=== PATIENT | male | born 1935 | race Hispanic/Latino ===

== ENCOUNTER 2019-07-08 15:22 | Inpatient (IN) | payer OTHER ==
--- OUTSIDE RECORDS SUMMARY | 2019-07-08 15:28 | XMS REPORT | Encounter Summary ---
:1935 Author Care Team Providers Name Role Phone Dr. Payam Dumont Primary Care Provider [phone] Jaelyn Christy MD Alumni Relations Manager [phone] Brittany Elizalde MD Professional Services Consultant [phone] Yaw Sneed MD Urologist [phone] Don suh MD Radiation Oncologist [phone] Reason for Visit Annual Depression Screening; Medicare Screening PSA; AWV Annual Wellness Visit Male (VFP); Advance Care Plan Instructions 1. Diabetes mellitus HbA1c (hemoglobin A1c), blood microalbumin/creatinine, mass ratio, urine metformin 500 mg tablet 2. Hypertensive disorder hydrochlorothiazide 25 mg tablet enalapril maleate 20 mg tablet verapamil ER (SR) 240 mg tablet,extended release 3. Dyslipidemia pravastatin 10 mg tablet 4. Hypertriglyceridemia Vascepa 1 gram capsule 5. Vitamin D deficiency Vitamin D2 50,000 unit capsule vitamin D, 25-hydroxy, total, serum 6. Adult health examination CBC w/ auto diff CMP, serum or plasma TSH, serum or plasma lipid panel, serum 7. Screening for malignant neoplasm of colon colon cancer screening, stool 8. Screening for malignant neoplasm of prostate PSA, serum or plasma 9. Depression screening learning about depression 10. Advance directive discussed with patient advance care planning: care instructions advance care planning: care instructions 11. Screening for disorder 12. Body mass index 25-29 - overweight learning about healthy weight Discussion Note RTC 6mo Plan of Care Patient Instructions It was good to see you in the office today for your Medicare Annual Wellness Visit. You have been provided some information on healthy nutrition, including a diet rich in fruits and vegetables, minimizing simple carbohydrates, salt, and saturated fats. I want to encourage regular cardi ovascular exercise such as walking at least 30 minutes daily, 5 times per week. Please remember to schedule any preventive health measures that we talked about today. You have also been provided education on fall prevention and community-based lifestyle interventions to help reduce health risks and promote healthy living in your Annual Wellness folder. Screening Recommendations 1. Vaccines Pneumonia: Next one Influenza: Next Fall 2. Colorectal Cancer Screening: Cologuard (every 3 years) Ordered 3. Annual Prostate Screening 4. Annual Depression Screening 5. Annual Alcohol Scree artemio 6. Annual Fall Risk Screening 7. Annual Health Risk Assessment Patient Instructions on Filing Advance Directives Be sure that you have easy access to your paperwork for your medical power of foxing closer and advanced directives. Be sure that the designated person as well as important family members have copies of those forms as well. Please have contact information of your designee renato vasques available. In the event of hospitalization, please bring those important documents with you for reference. Reminders Provider Appointments Est on or around Payam Dumont MD Patient 11/05/2019 Awv 15 on or around Payam Dumont MD 05/08/2020 Lab PSA, 05/08/2019 [facility] Serum or Plasma Practice Laboratory CBC W/ 05/08/2019 [facility] Auto Diff Practice Laboratory CMP, 05/08/2019 [facility] Serum or Plasma Practice Laboratory TSH, 05/08/2019 [facility] Serum or Plasma Practice Laboratory Lipid 05/08/2019 [facility] Panel, Serum Practice Laboratory HbA1C 05/08/2019 [facility] (Hemoglobin a1C), Practice Laboratory Blood 05/08/2019 [facility] Microalbumin/creati Practice Laboratory nine, Mass Ratio, Urine Vitamin 05/08/2019 [facility] D, 25-Hydroxy, Practice Laboratory Total, Serum Colon 05/08/2019 [facility] Cancer Screening, Laboratories (Cologuard Stool Orders Only) Referral None recorded. Procedures None recorded. Surgeries None recorded. Imaging None recorded. Medications Name Start Date Alphagan P 0.1 % eye drops clotrimazole-betamethasone 1 %-0.05 % topical cream APPLY TO THE AFFECTED AND SURROUNDING AREAS OF SKIN BY TOPICAL ROUTE 2 TIMES PER DAY prn rash enalapril maleate 20 mg tablet Take 1 tablet every day by oral route. hydrochlorothiazide 25 mg tablet TOME DELMAR TABLETA TODOS LOS GU metformin 500 mg tablet Take 1 tablet every day by oral route. naproxen 500 mg tablet Take 1 tablet twice a day by oral route as needed. OneTouch Delica Plus Lancet 33 gauge Pazeo 0.7 % eye drops pravastatin 10 mg tablet Take 1 tablet every day by oral route. ranitidine 150 mg tablet Take 1 tablet every day by oral route as needed for 30 days. tamsulosin 0.4 mg capsule per uro tramadol 50 mg tablet Take 1 tablet every 12 hours by oral route as needed. Vascepa 1 gram capsule Take 2 capsules twice a day by oral route. verapamil ER (SR) 240 mg tablet,extended release Take 1 tablet every day by oral route. Vitamin D2 50,000 unit capsule Take 1 capsule every week by oral route. Medications Administered None recorded. Vitals Height Weight BMI Blood Pressure 5 ft 4 in 157.6 lbs 27.1 kg/m2 120/68 mm[Hg] Results Lab Results None recorded. Allergies Code Code System Name Reaction Severity Status Onset NKDA Problems Name Status Onset Date Source Tinea Cruris Active 02/06/2019 Diabetes Mellitus Active 02/06/2019 Vitamin D Deficiency Active 02/06/2019 Dyslipidemia Active 02/06/2019 Hypertensive Disorder Active 02/06/2019 Neck Pain Active 02/06/2019 History of Malignant Neoplasm of Prostate Active 02/06/2019 Procedures Date Name Performed by 06/24/2016 Prostate Surgery Information not available Vaccine List Vaccine Type influenza, injectable, quadrivalent 01/22/2019 pneumococcal conjugate PCV 13 07/28/2018 10/08/2018 zoster subunit 10/08/2018 Social History Tobacco Smoking Status Never Smoker Past Encounters 05/08/2019 Diabetes Mellitus; Hypertensive Disorder; Dyslipidemia; Hypertriglyceridemia; Vitamin D Deficiency; Adult Health Examination; Screening for Malignant Neoplasm of Colon; Screening for Malignant Neoplasm of Prostate; Depression Screening; Advance Directive Discussed with Patient; Screening for Disorder; Body Mass Index 25-29 - Overweight Payam Dumont MD: [id number] [address], Ph. 04/21/2019 Jass Hematuria; Hypertensive Disorder; Dyslipidemia; Neck Pain; Tinea Cruris; Vitamin D Deficiency; Body Mass Index 25-29 - Overweight Payam Dumont MD: [id number] [place], [address] [address], Ph. History of Present Illness Mini Cog Reported By: Patient Functional Ability: Personal/Social/ Draw a clock and write in the numbers in the correct place, and set the time to 10 minutes after 11 o'clock was completed correctly? No, 3 word recall: Your nurse or doctor will ask you to remember 3 words. In 5 minutes, they will ask you to repeat them. Patient recalled 2 words Opioid Use Assessment Reported By: Patient Opioid Use Assessment:: Current Use of Opioids : Tramadol (Ultram), Other:; Naproxen. Has the patient tried other pain management modalities: yes Note: <div>AWV due.</div><div>
</div><div >hypertriglyceridemia - Stable. Taking meds. No problems with side effects or cost.
</div><div>Vascepa 1 gram capsule</div>&lt ;div>
</div><div>jass hematuria - better
</ div><div>Cont Tamsulosin
</div><div>F/U Uro - seeing.
</div><div>
</div><div>DM - Stable. Taking meds. No problems withside effects or cost. </div><div& gt;
</div><div>hypertensive disorder- Stable. Taking meds. No problems with side effects or cost.
</div><div> verapamil ER (SR) 240 mg tablet,extended release
</div><div&gt ;
</div><div>dyslipidemia - Stable. Taking meds. No problems with side effects or cost.
</div><div> pravastatin 10 mg tablet
</div><div>
</div>& lt;div>neck pain - Stable. Taking meds. No problems with side effects or cost.
</div><div>naproxen 500 mg tablet
</div ><div>traMADol 50 mg tablet
</div><div>
& lt;/div><div>tinea cruris - Stable. Taking meds. No problems with side effects or cost.
</div><div>clotrimazole-betamethasone 1 %-0.05 % topical cream
</div><div>
</div>&lt ;div>vitamin D deficiency - Stable. Taking meds. No problems with side effects or cost.
</div><div>Vitamin D2 50,000 unit capsule 1 capsule every week</div><div>
</div>I'd like to talk about what is ahead with your illness and do some thinking in advance about what is important to you so I can make sure we provide you with the care you want-is that okay? {{Yes*|No}}Review of Systems: ROS as noted in the HPI Review of Systems Comprehensive General Adult ROS Reported By: Patient Constitutional: Constitutional: no fever, no night sweats, no significant weight gain, no significant weight loss, no exercise intolerance Eyes: Eyes: no dry eyes, no vision change, no irritation ENMT: Ears: no difficulty hearing, no ear pain. Nose: no frequent nosebleeds, no nose problems, no sinus problems. Mouth/Throat: no sore throat, no bleeding gums, no snoring, no dry mouth, no mouth ulcers, no oral abnormalities, no teeth problems Cardiovascular: Cardiovascular: no chest pain, no arm pain on exertion, no shortness of breath when walking, no shortness of breath when lying down, no palpitations, no known heart murmur, no lightheadedness Respiratory: Respiratory: no cough, no wheezing, no shortness of breath, no coughing up blood, no sleep apnea Gastrointestinal: Gastrointestinal: no abdominal pain, no nausea, no vomiting, no constipation, normal appetite, no diarrhea, not vomiting blood, no dyspepsia, no GERD Genitourinary: Genitourinary: no incontinence, no difficulty urinating, no hematuria, no increased frequency Musculoskeletal: Musculoskeletal: no muscle aches, no muscle weakness, no arthralgias/joint pain, no back pain, no swelling in the extremities Integumentary: Skin: no abnormal mole, no jaundice, no rashes, no laceration Neurologic: Neurologic: no loss of consciousness, no weakness, no numbness, no seizures, no dizziness, no migraines, no headaches, no tremor Psychiatric: Psych: no depression, no sleep disturbances, feeling safe in a relationship, no alcohol abuse, no anxiety, no hallucinations, no suicidal thoughts Endocrine: Endocrine: no fatigue Hematologic/Lymphatic: Hematologic/Lymphatic no swollen glands, no bruising, no excessive bleeding Allergic/Immunologic: Allergy/Immunologic: no runny nose, no sinus pressure, no itching, no hives, no frequent sneezing Physical Exam General Adult Exam (male) Reported By: Patient Constitutional: General Appearance: healthy-appearing, well-developed, overweight. Level of Distress: NAD. Ambulation: ambulating normally Psychiatric: Insight: good judgement. Mental Status: active and alert, normal mood, normal affect. Orientation: to time, to place, to person. Memory: recent memory normal, remote memory normal Head: Head: normocephalic, atraumatic Eyes: Lids and Conjunctivae: non-injected, no discharge, no pallor. Pupils: PERRLA. EOM: EOMI. Lens: clear. Sclerae: non-icteric. Vision: peripheral vision grossly intact, acuity grossly intact ENMT: Ears: no lesions on external ear, EACs clear, TMs clear, TM mobility normal. Hearing: no hearing loss. Nose: no lesions on external nose, nares patent, no septal deviation, nasal passages clear, no sinus tenderness, no nasal discharge. Lips, Teeth, and Gums: no mouth or lip ulcers, no bleeding gums, normal dentition. Oropharynx: moist mucous membranes, no erythema, no exudates, tonsils not enlarged Neck: Neck: supple, trachea midline, no masses, FROM. Lymph Nodes: no cervical LAD, no supraclavicular LAD, no axillary LAD, no inguinal LAD. Thyroid: no enlargement, non-tender, no nodules Lungs: Respiratory effort: no dyspnea. Auscultation: breath sounds normal, good air movement, CTA except as noted, no wheezing, no rales/crackles, no rhonchi Cardiovascular: Heart Auscultation: RRR, normal S1, normal S2, no murmurs, no rubs, no gallops. Neck vessels: no carotid bruits. Pulses including femoral / pedal: normal throughout Abdomen: Bowel Sounds: normal. Inspection and Palpation: soft, non-distended, no tenderness, no guarding, no rebound tenderness, no masses, no CVA tenderness. Liver: non-tender, no hepatomegaly. Spleen: non-tender, no splenomegaly Musculoskeletal:: Motor Strength and Tone: normal, normal tone. Joints, Bones , and Muscles: normal movement of all extremities, no contractures, no bony abnormalities, no malalignment, no tenderness. Extremities: no cyanosis, no edema, no varicosities Neurologic: Gait and Station: normal gait, normal station. Cranial Nerves: grossly intact. Sensation: grossly intact. Reflexes: DTRs 2+ bilaterally throughout. Coordination and Cerebellum: no tremor Skin: Inspection and palpation: no lesions, no jaundice Back: Thoracolumbar Appearance: normal curvature; No spinal tenderness to palpation"
--- OUTSIDE RECORDS SUMMARY | 2019-07-08 15:28 | XMS REPORT | Encounter Summary ---
:1935 Author Care Team Providers Name Role Phone Dr. Payam Dumont Primary Care Provider [phone] Jaelyn Christy MD Process Consultant [phone] Brittany Elizalde MD Shipping & Receiving Lead [phone] Yaw Sneed MD Urologist [phone] Don suh MD Radiation Oncologist [phone] Reason for Visit hospital follow up - TCM (VFP); chronic conditions Instructions 1. Jass hematuria 2. Hypertensive disorder verapamil ER (SR) 240 mg tablet,extended release 3. Dyslipidemia pravastatin 10 mg tablet 4. Neck pain naproxen 500 mg tablet tramadol 50 mg tablet 5. Tinea cruris clotrimazole-betamethasone 1 %-0.05 % topical cream 6. Vitamin D deficiency Vitamin D2 50,000 unit capsule 7. Body mass index 25-29 - overweight Discussion Note RTC AWV 05/12 Patient educational handouts: No information available. Plan of Care Patient Instructions Thank you for scheduling your post hospital visit. Please let us know if you need help in scheduling follow up tests or specialist visits. Knowing what medicines to keep taking and which to ones to stop after a hospital stay can be confusing. Contact your physicians with your questions about what medications you should be taking. Our [facility] can also help you in this area. Contact them at [phone] . [facility] can help you choose the best Home Health agency. We can also help you with social media assistant and community resources. Call us we are here to help. If you experience any new or concerning symptoms, call us immediately at [phone] . Evening and Saturday clinic hours are now available. If you have problems after hours, you can reach the [facility] doctor documentation analyst at . Please follow up with your doctor in . Reminders Provider Appointments Awv 05/08/2019 Payam Dumont MD 11:00AM Lab None recorded. Referral None recorded. Procedures None recorded. Surgeries None recorded. Imaging None recorded. Medications Name Start Date clotrimazole-betamethasone 1 %-0.05 % topical cream APPLY TO THE AFFECTED AND SURROUNDING AREAS OF SKIN BY TOPICAL ROUTE 2 TIMES PER DAY prn rash enalapril maleate 20 mg tablet Take 1 tablet every day by oral route. fenofibrate nanocrystallized 48 mg tablet Take 1 tablet every day by oral route. hydrochlorothiazide 25 mg tablet Take 1 tablet every day by oral route. metformin 500 mg tablet Take 1 tablet every day by oral route. naproxen 500 mg tablet Take 1 tablet twice a day by oral route as needed. prn pain pravastatin 10 mg tablet Take 1 tablet every day by oral route. ranitidine 150 mg tablet Take 1 tablet every day by oral route as needed for 30 days. tamsulosin 0.4 mg capsule per uro tramadol 50 mg tablet Take 1 tablet every 12 hours by oral route as needed. prn moderate to severe pain Vascepa 1 gram capsule Take 1 capsule every day by oral route. verapamil ER (SR) 240 mg tablet,extended release Take 1 tablet every day by oral route. Vitamin D2 50,000 unit capsule Take 1 capsule every week by oral route. zolpidem 5 mg tablet Take 1 tablet every day by oral route at bedtime for 30 days. Medications Administered None recorded. Vitals Height Weight BMI Blood Pressure 5 ft 4 in 158.2 lbs 27.2 kg/m2 120/60 mm[Hg] Results Lab Results None recorded. Allergies [...] Tobacco Smoking Status Never Smoker Past Encounters 04/21/2019 Jass Hematuria; Hypertensive Disorder; Dyslipidemia; Neck Pain; Tinea Cruris; Vitamin D Deficiency; Body Mass Index 25-29 - Overweight Payam Dumont MD: [address], [address], [place] [address], Ph. [phone] History of Present Illness TCM Provider Visit Reported By: Patient HPI: Functional Status No difficulty following discharge instructions, Taking medications as prescribed, Understands missed doses, Following recommended activity level Note: TCM - [facility] - Pt had gross hematuria. Saw Uro. Per Pt, Uro cleaned out the bladder. No CA per Pt.<div>Dates: 03/29-05/12</div><div& gt;Rx: Flomax</div><div>Better
<div>
</ div><div>diabetes mellitus - Stable. Taking meds. No problems with side effects or cost. </div><div>metFORMIN 500 mg tablet from every day for 90 daysto every day</div><div>
</div>& lt;div>hypertensive disorder - Stable. Taking meds. No problems with side effects or cost.
</div><div>verapamil ER (SR) 240 mg tablet,extended release - needs refills
</div><div> enalapril maleate 20 mg tablet
</div><div> hydroCHLOROthiazide 25 mg tablet
</div><div>
</ div><div>dyslipidemia - Stable. Taking meds. No problems with side effects or cost.
</div><div>pravastatin 10 mg tablet - not sure if taking</div><div>Pt has Vascepa</div><div> fenofibrate nanocrystallized 48 mg tablet</div><div>
</ div><div>neck pain - Stable. Taking meds. No problems with side effects or cost. </div><div>traMADol 50 mg tablet from every day as needed to every 12 hours as needed</div><div>naproxen 500 mg tablet 1 tablet 2 times a day as needed
</div><div>XR, cervical spine, 2 or 3 view - d/w Pt
</div><div>
& lt;/div><div>tinea cruris - Stable. Taking meds. No problems with side effects or cost.
</div><div>clotrimazole-betamethasone 1 %-0.05 % topical cream APPLY TO THE AFFECTED AND SURROUNDING AREAS OF SKIN BY TOPICAL ROUTE 2 TIMES PER DAY prn rash
</div><div><br&gt ;</div><div>dysuria - w/u pending
</div><div> Refer Uro, Dr. Sneed - saw</div><div>
</div><div >Vit D - Stable.Taking meds. No problems with side effects or cost. </div& gt;<div>
</div><div>Your labs are normal except...&lt ;br></div><div>1. Lipids are a little high. Irecommend low fat diet and walking. I am starting a new med, Pravastatin.
</div>&lt ;div>2. Your diabetes is a little high. Take your meds. I recommend low carb / sugar diet and walking. I will monitor.
</div><div>3. Your liver tests are a little high. I recommendavoiding fatty foods, pain meds, and alcohol. I will monitor.
</div><div>4. Your kidney tests are a little abnormal. Drink water at least 4 times daily. I will monitor.
</div><div>5. Your platelets were a little abnormal. This may be a lab variation or other cause. I will monitor.</div><div>1. 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 TakeTylenol as needed for pain.</div></div>Review of Systems: ROS as noted in the HPI Review of Systems Comprehensive General Adult ROS Reported By: Patient Constitutional: Constitutional: no fever Eyes: Eyes: no vision change, no irritation ENMT: Ears: no difficulty hearing, no ear pain. Nose: no nose problems, no sinus problems. Mouth/Throat: no sore throat, no oral abnormalities Cardiovascular: Cardiovascular: no chest pain, no palpitations Respiratory: Respiratory: no cough, no wheezing, no shortness of breath Gastrointestinal: Gastrointestinal: no abdominal pain, no nausea, no vomiting, no constipation, normal appetite, no diarrhea, no GERD Genitourinary: Genitourinary: no difficulty urinating, no hematuria, no increased frequency Musculoskeletal: Musculoskeletal: no muscle aches Integumentary: Skin: no rashes Neurologic: Neurologic: no headaches Endocrine: Endocrine: no fatigue Hematologic/Lymphatic: Hematologic/Lymphatic no swollen glands Allergic/Immunologic: Allergy/Immunologic: no runny nose, no sinus pressure, no itching, no frequent sneezing Physical Exam General Adult Exam (male) Reported By: Patient Constitutional: General Appearance: healthy-appearing, well-nourished, well-developed. Level of Distress: NAD. Ambulation: ambulating normally Psychiatric: Insight: good judgement. Mental Status: normal mood, normal affect Head: Head: normocephalic, atraumatic Eyes: Lids and Conjunctivae: non-injected, no discharge, no pallor. Pupils: PERRLA. EOM: EOMI ENMT: Ears: no lesions on external ear, EACs clear, TMs clear. Hearing: no hearing loss. Nose: no lesions on external nose, nares patent, nasal passages clear, no sinus tenderness, no nasal discharge. Oropharynx: moist mucous membranes, no erythema, no exudates, tonsils not enlarged Neck: Neck: supple, trachea midline, no masses, FROM. Lymph Nodes: no cervical LAD, no supraclavicular LAD Lungs: Respiratory effort: no dyspnea. Auscultation: breath sounds normal, good air movement, CTA except as noted, no wheezing, no rales/crackles, no rhonchi Cardiovascular: Heart Auscultation: RRR, normal S1, normal S2, no murmurs, no rubs, no gallops Abdomen: Bowel Sounds: normal. Inspection and Palpation: soft, non-distended, no tenderness, no guarding, no masses. Liver: non-tender, no hepatomegaly. Spleen: non-tender, no splenomegaly Musculoskeletal:: Extremities: no edema Neurologic: Gait and Station: normal gait, normal station
--- OUTSIDE RECORDS SUMMARY | 2019-07-08 15:28 | XMS REPORT | Encounter Summary ---
:1935 Author Care Team Providers Name Role Phone Dr. Payam Dumont Primary Care Provider [phone] Jaelyn Christy MD Food Checker [phone] Brittany Elizalde MD Field Artillery Targeting Technician [phone] Yaw Sneed MD Urologist [phone] Don suh MD Radiation Oncologist [phone] Reason for Visit chronic conditions Instructions 1. Diabetes mellitus HbA1c (hemoglobin A1c), blood metformin 500 mg tablet 2. Hypertensive disorder CMP, serum or plasma CBC w/ auto diff verapamil ER (SR) 240 mg tablet,extended release enalapril maleate 20 mg tablet hydrochlorothiazide 25 mg tablet 3. Dyslipidemia lipid panel, serum fenofibrate nanocrystallized 48 mg tablet 4. Neck pain tramadol 50 mg tablet naproxen 500 mg tablet XR, cervical spine, 2 or 3 view 5. Tinea cruris clotrimazole-betamethasone 1 %-0.05 % topical cream 6. Immunization refused 7. Body mass index 25-29 - overweight Discussion Note: None recorded.Patient educational handouts: No information available. Plan of Care Patient Instructions RTC 3 mo for AWV Reminders Provider Appointments [facility] on or around Payam Dumont, 05/09/2019 Lab HbA1C 02/06/2019 [place] (Hemoglobin a1C), Practice Laboratory Blood Lipid 02/06/2019 [place] Panel, Serum Practice Laboratory CMP, Serum 02/06/2019 [place] or Plasma Practice Laboratory CBC W/ 02/06/2019 [place] Auto Diff Practice Laboratory Referral None recorded. Procedures None recorded. Surgeries None recorded. Imaging XR, 02/06/2019 [facility], [facility] 3 View Medications Name Start Date clotrimazole-betamethasone 1 %-0.05 [...] by oral route as needed. prn pain tramadol 50 mg tablet Take 1 tablet every 12 hours by oral route as needed. prn moderate to severe pain triamcinolone acetonide 0.1 % topical cream APPLY A THIN LAYER TO THE AFFECTED AREA(S) BY TOPICAL ROUTE 3 TIMES PER DAY Vascepa 1 gram capsule Take 1 capsule every day by oral route. verapamil ER (SR) 240 mg tablet,extended release Take 1 tablet every day by oral route. Medications Administered None recorded. Vitals Height Weight BMI Blood Pressure 5 ft 4 in 155.6 lbs 26.7 kg/m2 Lab Results None recorded. Allergies Code Code System Name Reaction Severity Status Onset NKDA Problems Name Status Onset Date Source Tinea Cruris Active 02/06/2019 Diabetes Mellitus Active 02/06/2019 Vitamin D Deficiency Active 02/06/2019 Dyslipidemia Active 02/06/2019 Hypertensive Disorder Active 02/06/2019 Neck Pain Active 02/06/2019 History of Malignant Neoplasm of Prostate Active 02/06/2019 Procedures Date Name Performed by 06/24/2016 Prostate Surgery Information not available 02/06/2019 XR, Cervical Spine, 2 or 3 View [facility] [address] [place] [address] (Work [address]) Vaccine List None recorded. Social History Tobacco Smoking Status Never Smoker Past Encounters 02/06/2019 Diabetes Mellitus; Hypertensive Disorder; Dyslipidemia; Neck Pain; Tinea Cruris ; Immunization Refused; Body Mass Index 25-29 - Overweight Payam Dumont MD: [id number], [address], [place] [address], Ph. History of Present Illness Note: Get est.<div>
</div><div>HTN - Stable. Taking meds. No problems with side effects or cost. </div><div>< br></div><div>HLD - Stable. Taking meds. No problems with side effects or cost. </div><div>
</div><div>Vit D - Stable. Taking meds. No problems with side effects or cost. </div>< div>
Neck Pain - Stable. Taking meds. No problems with side effects or cost. </div><div>
</div><div>Rash - has itchy rash in groin. Triamcinolone helped in past.</div>Review of Systems : ROS as noted in the HPI Review [...] Status: active and alert, normal mood, normal affect Head: Head: normocephalic, atraumatic Lungs: Respiratory effort: no dyspnea. Auscultation: breath sounds normal, good air movement, CTA except as noted Cardiovascular: Heart Auscultation: RRR, normal S1, normal S2 Neurologic: Gait and Station: normal gait, normal station
--- OUTSIDE RECORDS SUMMARY | 2019-07-08 15:28 | XMS REPORT ---
:1935 [facility] [address] [place] [address] Care Team Providers Name Role Phone Unavailable Unavailable Unavailable Payers Payer Name Policy Type Policy Number Effective Date Expiration Date Problems This patient has no known problems. Allergies, Adverse Reactions, Alerts Allergy Allergy Status Severity Reaction(s) Onset Inactive Treating Comments Name Type Date Date Clinician No Known DA Active U 2019-03 Allergies 07 00:00:0 0 Medications This patient has no known medications. Results Test Description Test Time Test Comments Text Results Atomic Results Result Comments GLUCOSE BEDSIDE TESTING 2019-04-07 12:03:00 Test Item Value Reference Range Comments GLUCOSE BEDSIDE TESTING (test code=GLUBED) 99 MG/DL 60-99 GLUCOSE BEDSIDE [id number] 17:28:00 Test Item Value Reference Range Comments GLUCOSE BEDSIDE TESTING (test code=GLUBED) 147 MG/DL 60-99 GLUCOSE BEDSIDE [id number] 05:42:00 Test Item Value Reference Range Comments GLUCOSE BEDSIDE TESTING (test code=GLUBED) 109 MG/DL 60-99 GLUCOSE BEDSIDE [id number] 15:54:00 Test Item Value Reference Range Comments GLUCOSE BEDSIDE TESTING (test code=GLUBED) 134 MG/DL 60-99 GLUCOSE BEDSIDE [id number] 12:46:00 Test Item Value Reference Range Comments GLUCOSE BEDSIDE TESTING (test code=GLUBED) 160 MG/DL 60-99 BASIC METABOLIC [id number] 06:26:00 Test Item Value Reference Range Comments SODIUM (test code=NA) 136 MMOL/L 137-145 POTASSIUM (test code=K) 3.6 MMOL/L 3.5-5.1 CHLORIDE (test code=CL) 102 MMOL/L 98-107 CARBON DIOXIDE (test code=CO2) 31 MMOL/L 22-30 ANION GAP (test code=GAP) 7 MMOL/L 14-24 GLUCOSE (test code=GLU) 97 MG/DL 74-106 BLOOD UREA NITROGEN (test 17 MG/DL 9-20 code=BUN) GLOMERULAR FILTRATION RATE > 60 Reporting units: ml/min/1.73 (test code=GFR) m2 (Modified MDRD Formula)Reference Range: > or=60 ml/min/1.73 m2 CREATININE (test code=CREAT) 0.80 MG/DL 0.66-1.25 CALCIUM (test code=CA) 8.5 MG/DL 8.4-10.2 BASIC METABOLIC [id number] 06:21:00 Test Item Value Reference Range Comments SODIUM (test code=NA) 136 MMOL/L 137-145 POTASSIUM (test code=K) 3.6 MMOL/L 3.5-5.1 CHLORIDE (test code=CL) 102 MMOL/L 98-107 CARBON DIOXIDE (test code=CO2) MMOL/L 22-30 GLUCOSE (test code=GLU) MG/DL 74-106 BLOOD UREA NITROGEN (test code=BUN) MG/DL 9-20 GLOMERULAR FILTRATION RATE (test code=GFR) CREATININE (test code=CREAT) MG/DL 0.66-1.25 CALCIUM (test code=CA) MG/DL 8.7-9.7 GLUCOSE BEDSIDE [id number] 06:07:00 Test Item Value Reference Range Comments GLUCOSE BEDSIDE TESTING (test code=GLUBED) 100 MG/DL 60-99 CBC W/AUTO [id number] 06:05:00 Test Item Value Reference Range Comments WHITE BLOOD CELL (test code=WBC) 9.3 K/MM3 3.8-9.8 RED BLOOD CELL (test code=RBC) 3.08 M/MM3 3.95-5.67 HEMOGLOBIN (test code=HGB) 10.5 G/DL 12.4-16.7 HEMATOCRIT (test code=HCT) 31.1 % 35.9-49.5 MEAN CELL VOLUME (test code=MCV) 101 fL 81.7-96.1 MEAN CELL HGB (test code=MCH) 34.1 pg 27.6-33.2 MEAN CELL HGB CONCETRATION (test code=MCHC) 33.8 % 32.9-35.5 RED CELL DISTRIBUTION WIDTH (test code=RDW) 12.0 % 12.1-15.2 PLATELET COUNT (test code=PLT) 137 K/MM3 129-368 MEAN PLATELET VOLUME (test code=MPV) 10.9 fl 7.4-10.4 NEUTROPHIL % (test code=NT%) 64.7 % 43-75 IMMATURE GRANULOCYTE % (test code=IG%) 1.0 % 0.0-2.0 LYMPHOCYTE % (test code=LY%) 24.9 % 14-44 MONOCYTE % (test code=MO%) 7.1 % 4-13 EOSINOPHIL % (test code=EO%) 1.9 % 0-6 BASOPHIL % (test code=BA%) 0.4 % 0-2 NUCLEATED RBC % (test code=NRBC%) 0.0 % 0-1.0 NEUTROPHIL # (test code=NT#) 6.00 K/mm3 2.0-7.6 IMMATURE GRANULOCYTE # (test code=IG#) 0.09 x10 3/uL 0-0.03 LYMPHOCYTE # (test code=LY#) 2.31 K/mm3 1.0-3.8 MONOCYTE # (test code=MO#) 0.66 K/mm3 0.1-0.8 EOSINOPHIL # (test code=EO#) 0.18 K/mm3 0.0-0.2 BASOPHIL # (test code=BA#) 0.04 K/mm3 0.0-0.2 NUCLEATED RBC # (test code=NRBC#) 0.00 K/mm3 0.0-0.1 GLUCOSE BEDSIDE [id number] 21:37:00 Test Item Value Reference Range Comments GLUCOSE BEDSIDE TESTING (test code=GLUBED) 126 MG/DL 60-99 URINARY BLADDER,[id number] 15:23:00 RUN DATE: 04/01/19 [facility] [place] PAGE 1 RUN TIME: 1523 Specimen Inquiry RUN USER: INTERFACE PATIENT: CAITLIN CARDOSO LOC: POP U #: [id number] AGE/SX: 83/M ROOM: [facility] RE03/30[facility] DR: Destin Sy MD : 37 BED: A DIS: STATUS: ADM IN TLOC: --- --------- SPEC #: [id number] RECD: 03/30/19 STATUS: SUSANNA ROWELL #: [id number] HERNESTO: 03/30/19 [facility] [place] DR: Destin Sy MD ENTERED: 03/30/19 SP TYPE: URINBLAD IVONE DR: Yaw Sneed MD ORDERED: SURG PATH LVL 5 CODES: [id number] - URINARY BLADDER [id number] - URINARY BLADDER ACUTEINFLAMMAT [id number] - URINARY BLADDER TRANSITIONAL CE [id number] - URINARY BLADDER EXCISION, NOS [place]IES [place]: [place] [id number] [facility] [address] [place] [address] [place] [address] [address] Sec. Office #[phone] PROCEDURES: SURG PATH LVL 5 (03/31/19 -1154) TISSUES: A. URINARY BLADDER, NOS - BLADDER BIOPSY CONSULTATION Dr. Rock has reviewed this case and agrees with the diagnosis. 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 Received in formalin are irregular fragments of pink-raymundo to red-brown soft tissue (2.0 x 1.5 x 0.3 cm in aggregate, 0.2 g). The entire specimen is submitted as A. /ba/summer MICROSCOPIC DESCRIPTION Bladder biopsy. 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 Adequate muscularis propria is present. Note: Additional levels and recuts performed. /summer SYNOPTIC REPORT ACOS MANDATED SYNOPTIC DATA ELEMENTS Procedure: Transurethralresection of bladder tumor Tumor Site: Urinary bladder, specific site not otherwise specified Histologic Type: Histology indefinite for papillary urothelial carcinoma, noninvasive (obscuring cautery artifact present) Histologic Grade: Presumptive low grade Tumor Configuration: Presumptive papillary architecture Muscularis Propria: Muscularis propria (detrusor muscle ) present Lymphovascular Invasion: Not identified Tumor Extension: Presumptive noninvasivepapillary carcinoma Additional Pathologic Findings: Inflammation/regenerative changes [facility] [place] 04/01/19 1523 END OF REPORT BASIC METABOLIC [id number] 08:40:00 Test Item Value Reference Range Comments SODIUM (test code=NA) 136 MMOL/L 137-145 POTASSIUM (test code=K) 3.8 MMOL/L 3.5-5.1 CHLORIDE (test code=CL) 101 MMOL/L 98-107 CARBON DIOXIDE (test code=CO2) 29 MMOL/L 22-30 GLUCOSE (test code=GLU) 120 MG/DL 74-106 BLOOD UREA NITROGEN (test 22 MG/DL 9-20 code=BUN) GLOMERULAR FILTRATION RATE > 60 Reporting units: ml/min/1.73 (test code=GFR) m2 (Modified MDRD Formula)Reference Range: > or=60 ml/min/1.73 m2 CREATININE (test code=CREAT) 1.00 MG/DL 0.66-1.25 CALCIUM (test code=CA) 8.4 MG/DL 8.4-10.2 BASIC METABOLIC [id number] 08:39:00 Test Item Value Reference Range Comments SODIUM (test code=NA) 136 MMOL/L 137-145 POTASSIUM (test code=K) 3.8 MMOL/L 3.5-5.1 CHLORIDE (test code=CL) 101 MMOL/L 98-107 CARBON DIOXIDE (test code=CO2) 29 MMOL/L 22-30 GLUCOSE (test code=GLU) MG/DL 74-106 BLOOD UREA NITROGEN (test MG/DL 9-20 code=BUN) GLOMERULAR FILTRATION RATE > 60 Reporting units: ml/min/1.73 (test code=GFR) m2 (Modified MDRD Formula)Reference Range: > or=60 ml/min/1.73 m2 CREATININE (test code=CREAT) 1.00 MG/DL 0.66-1.25 CALCIUM (test code=CA) MG/DL 8.7-9.7 BASIC METABOLIC [id number] 08:36:00 Test Item Value Reference Range Comments SODIUM (test code=NA) 136 MMOL/L 137-145 POTASSIUM (test code=K) 3.8 MMOL/L 3.5-5.1 CHLORIDE (test code=CL) 101 MMOL/L 98-107 CARBON DIOXIDE (test code=CO2) MMOL/L 22-30 GLUCOSE (test code=GLU) MG/DL 74-106 BLOOD UREA NITROGEN (test code=BUN) MG/DL 9-20 GLOMERULAR FILTRATION RATE (test code=GFR) CREATININE (test code=CREAT) MG/DL 0.66-1.25 CALCIUM (test code=CA) MG/DL 8.7-9.7 CBC W/AUTO [id number] 08:10:00 Test Item Value Reference Range Comments WHITE BLOOD CELL (test code=WBC) 11.5 K/MM3 3.8-9.8 RED BLOOD CELL (test code=RBC) 2.95 M/MM3 3.95-5.67 HEMOGLOBIN (test code=HGB) 10.2 G/DL 12.4-16.7 HEMATOCRIT (test code=HCT) 29.7 % 35.9-49.5 MEAN CELL VOLUME (test code=MCV) 101 fL 81.7-96.1 MEAN CELL HGB (test code=MCH) 34.6 pg 27.6-33.2 MEAN CELL HGB CONCETRATION (test code=MCHC) 34.3 % 32.9-35.5 RED CELL DISTRIBUTION WIDTH (test code=RDW) 11.9 % 12.1-15.2 PLATELET COUNT (test code=PLT) 133 K/MM3 129-368 MEAN PLATELET VOLUME (test code=MPV) 11.5 fl 7.4-10.4 NEUTROPHIL % (test code=NT%) 77.2 % 43-75 IMMATURE GRANULOCYTE % (test code=IG%) 0.5 % 0.0-2.0 LYMPHOCYTE % (test code=LY%) 16.0 % 14-44 MONOCYTE % (test code=MO%) 6.1 % 4-13 EOSINOPHIL % (test code=EO%) 0.1 % 0-6 BASOPHIL % (test code=BA%) 0.1 % 0-2 NUCLEATED RBC % (test code=NRBC%) 0.0 % 0-1.0 NEUTROPHIL # (test code=NT#) 8.85 K/mm3 2.0-7.6 IMMATURE GRANULOCYTE # (test code=IG#) 0.06 x10 3/uL 0-0.03 LYMPHOCYTE # (test code=LY#) 1.84 K/mm3 1.0-3.8 MONOCYTE # (test code=MO#) 0.70 K/mm3 0.1-0.8 EOSINOPHIL # (test code=EO#) 0.01 K/mm3 0.0-0.2 BASOPHIL # (test code=BA#) 0.01 K/mm3 0.0-0.2 NUCLEATED RBC # (test code=NRBC#) 0.00 K/mm3 0.0-0.1 BASIC METABOLIC [id number] 07:20:00 Test Item Value Reference Range Comments SODIUM (test code=NA) 135 MMOL/L 137-145 POTASSIUM (test code=K) 4.0 MMOL/L 3.5-5.1 CHLORIDE (test code=CL) 102 MMOL/L 98-107 CARBON DIOXIDE (test code=CO2) 27 MMOL/L 22-30 ANION GAP (test code=GAP) 10 MMOL/L 14-24 GLUCOSE (test code=GLU) 134 MG/DL 74-106 BLOOD UREA NITROGEN (test 24 MG/DL 9-20 code=BUN) GLOMERULAR FILTRATION RATE > 60 Reporting units: ml/min/1.73 (test code=GFR) m2 (Modified MDRD Formula)Reference Range: > or=60 ml/min/1.73 m2 CREATININE (test code=CREAT) 1.00 MG/DL 0.66-1.25 CALCIUM (test code=CA) 8.6 MG/DL 8.4-10.2 BASIC METABOLIC [id number] 07:19:00 Test Item Value Reference Range Comments SODIUM (test code=NA) 135 MMOL/L 137-145 POTASSIUM (test code=K) 4.0 MMOL/L 3.5-5.1 CHLORIDE (test code=CL) 102 MMOL/L 98-107 CARBON DIOXIDE (test code=CO2) MMOL/L 22-30 GLUCOSE (test code=GLU) MG/DL 74-106 BLOOD UREA NITROGEN (test MG/DL 9-20 code=BUN) GLOMERULAR FILTRATION RATE > 60 Reporting units: ml/min/1.73 (test code=GFR) m2 (Modified MDRD Formula)Reference Range: > or=60 ml/min/1.73 m2 CREATININE (test code=CREAT) 1.00 MG/DL 0.66-1.25 CALCIUM (test code=CA) MG/DL 8.7-9.7 BASIC METABOLIC [id number] 07:17:00 Test Item Value Reference Range Comments SODIUM (test code=NA) 135 MMOL/L 137-145 POTASSIUM (test code=K) 4.0 MMOL/L 3.5-5.1 CHLORIDE (test code=CL) 102 MMOL/L 98-107 CARBON DIOXIDE (test code=CO2) MMOL/L 22-30 GLUCOSE (test code=GLU) MG/DL 74-106 BLOOD UREA NITROGEN (test code=BUN) MG/DL 9-20 GLOMERULAR FILTRATION RATE (test code=GFR) CREATININE (test code=CREAT) MG/DL 0.66-1.25 CALCIUM (test code=CA) MG/DL 8.7-9.7 CBC W/AUTO [id number] 06:41:00 Test Item Value Reference Range Comments WHITE BLOOD CELL (test code=WBC) 11.4 K/MM3 3.8-9.8 RED BLOOD CELL (test code=RBC) 2.96 M/MM3 3.95-5.67 HEMOGLOBIN (test code=HGB) 10.1 G/DL 12.4-16.7 HEMATOCRIT (test code=HCT) 30.0 % 35.9-49.5 MEAN CELL VOLUME (test code=MCV) 101 fL 81.7-96.1 MEAN CELL HGB (test code=MCH) 34.1 pg 27.6-33.2 MEAN CELL HGB CONCETRATION (test code=MCHC) 33.7 % 32.9-35.5 RED CELL DISTRIBUTION WIDTH (test code=RDW) 11.9 % 12.1-15.2 PLATELET COUNT (test code=PLT) 140 K/MM3 129-368 MEAN PLATELET VOLUME (test code=MPV) 11.3 fl 7.4-10.4 NEUTROPHIL % (test code=NT%) 85.1 % 43-75 IMMATURE GRANULOCYTE % (test code=IG%) 0.8 % 0.0-2.0 LYMPHOCYTE % (test code=LY%) 10.6 % 14-44 MONOCYTE % (test code=MO%) 3.4 % 4-13 EOSINOPHIL % (test code=EO%) 0.0 % 0-6 BASOPHIL % (test code=BA%) 0.1 % 0-2 NUCLEATED RBC % (test code=NRBC%) 0.0 % 0-1.0 NEUTROPHIL # (test code=NT#) 9.66 K/mm3 2.0-7.6 IMMATURE GRANULOCYTE # (test code=IG#) 0.09 x10 3/uL 0-0.03 LYMPHOCYTE # (test code=LY#) 1.20 K/mm3 1.0-3.8 MONOCYTE # (test code=MO#) 0.39 K/mm3 0.1-0.8 EOSINOPHIL # (test code=EO#) 0.00 K/mm3 0.0-0.2 BASOPHIL # (test code=BA#) 0.01 K/mm3 0.0-0.2 NUCLEATED RBC # (test code=NRBC#) 0.00 K/mm3 0.0-0.1 AG PROSTATE [id number] 14:35:00 Test Item Value Reference Range Comments AG PROSTATE SPECIFIC (test code=PSA) < 0.1 ng/mL 0.0-4.0 GLUCOSE BEDSIDE [id number] 14:28:00 Test Item Value Reference Range Comments GLUCOSE BEDSIDE TESTING (test code=GLUBED) 133 MG/DL 60-99 COMPREHENSIVE METABOLIC [id number] 04:10:00 Test Item Value Reference Range Comments SODIUM (test code=NA) 133 MMOL/L 137-145 POTASSIUM (test code=K) 3.9 MMOL/L 3.5-5.1 CHLORIDE (test code=CL) 96 MMOL/L 98-107 CARBON DIOXIDE (test code=CO2) 17 MMOL/L 22-30 GLUCOSE (test code=GLU) 248 MG/DL 74-106 BLOOD UREA NITROGEN (test 30 MG/DL 9-20 code=BUN) GLOMERULAR FILTRATION RATE 49 Reporting units: ml/min/1.73 (test code=GFR) m2 (Modified MDRD Formula)Reference Range: > or=60 ml/min/1.73 m2 CREATININE (test code=CREAT) 1.40 MG/DL 0.66-1.25 TOTAL PROTEIN (test code=PROT) 8.2 G/DL 6.2-7.6 ALBUMIN (test code=ALB) 4.7 G/DL 3.5-5.0 CALCIUM (test code=CA) 9.9 MG/DL 8.4-10.2 BILIRUBIN TOTAL (test 1.2 MG/DL 0.2-1.3 code=BILT) SGOT/AST (test code=AST) 55 UNITS/L 17-59 SGPT/ALT (test code=ALT) 74 UNITS/L 21-72 ALKALINE PHOSPHATASE (test 38 UNITS/L 38-126 code=ALKP) COMPREHENSIVE METABOLIC [id number] 04:08:00 Test Item Value Reference Range Comments SODIUM (test code=NA) 133 MMOL/L 137-145 POTASSIUM (test code=K) 3.9 MMOL/L 3.5-5.1 CHLORIDE (test code=CL) 96 MMOL/L 98-107 CARBON DIOXIDE (test code=CO2) MMOL/L 22-30 GLUCOSE (test code=GLU) MG/DL 74-106 BLOOD UREA NITROGEN (test code=BUN) MG/DL 9-20 GLOMERULAR FILTRATION RATE (test code=GFR) CREATININE (test code=CREAT) MG/DL 0.66-1.25 TOTAL PROTEIN (test code=PROT) G/DL 6.2-7.6 ALBUMIN (test code=ALB) 4.7 G/DL 3.5-5.0 CALCIUM (test code=CA) MG/DL 8.7-9.7 BILIRUBIN TOTAL (test code=BILT) MG/DL 0.2-1.3 SGOT/AST (test code=AST) UNITS/L 15-37 SGPT/ALT (test code=ALT) UNITS/L 21-72 ALKALINE PHOSPHATASE (test code=ALKP) UNITS/L 38-126 COMPREHENSIVE METABOLIC [id number] 04:07:00 Test Item Value Reference Range Comments SODIUM (test code=NA) 133 MMOL/L 137-145 POTASSIUM (test code=K) MMOL/L 3.5-5.1 CHLORIDE (test code=CL) 96 MMOL/L 98-107 CARBON DIOXIDE (test code=CO2) MMOL/L 22-30 GLUCOSE (test code=GLU) MG/DL 74-106 BLOOD UREA NITROGEN (test code=BUN) MG/DL 9-20 GLOMERULAR FILTRATION RATE (test code=GFR) CREATININE (test code=CREAT) MG/DL 0.66-1.25 TOTAL PROTEIN (test code=PROT) G/DL 6.2-7.6 ALBUMIN (test code=ALB) 4.7 G/DL 3.5-5.0 CALCIUM (test code=CA) MG/DL 8.7-9.7 BILIRUBIN TOTAL (test code=BILT) MG/DL 0.2-1.3 SGOT/AST (test code=AST) UNITS/L 15-37 SGPT/ALT (test code=ALT) UNITS/L 21-72 ALKALINE PHOSPHATASE (test code=ALKP) UNITS/L 38-126 PROTHROMBIN [id number] 04:05:00 Test Item Value Reference Range Comments PROTHROMBIN TIME PATIENT (test 11.6 SECONDS 9.6-11.6 code=PTP) INTERNATIONAL NORMAL RATIO 1.1 0.8-1.1 The INR is to be used only (test code=INR) for monitoring oral anticoagulanttherapy. INDICATION INR VALUE 1. Prophylaxis, deep venous thrombosis, including high risk surgery. 2.0 - 3.0 2. Prophylaxis, deep venous thrombosis, hip surgery, treatment for deep venous thrombosis or pulmonary prevention of systemic embolism in patients with valvular heart disease, atrial fibrillation, tissue heart valve, or acute myocardial infarction. 2.0 - 3.0 3. Mechanical prosthesis heart valves, recurrent systemic embolism. 3.0 - 4.5 Comments to Vacuum Evaporation Operator: NONEPTT [id number] 04:05:00 Test Item Value Reference Range Comments PTT ACTIVATED (test code=APTT) 23.3 SECONDS 22.0-33.0 Comments to Vacuum Evaporation Operator: NONECBC W/AUTO [id number] 03:52:00 Test Item Value Reference Range Comments WHITE BLOOD CELL (test code=WBC) 14.9 K/MM3 3.8-9.8 RED BLOOD CELL (test code=RBC) 4.05 M/MM3 3.95-5.67 HEMOGLOBIN (test code=HGB) 13.6 G/DL 12.4-16.7 HEMATOCRIT (test code=HCT) 39.7 % 35.9-49.5 MEAN CELL VOLUME (test code=MCV) 98 fL 81.7-96.1 MEAN CELL HGB (test code=MCH) 33.6 pg 27.6-33.2 MEAN CELL HGB CONCETRATION (test code=MCHC) 34.3 % 32.9-35.5 RED CELL DISTRIBUTION WIDTH (test code=RDW) 11.8 % 12.1-15.2 PLATELET COUNT (test code=PLT) 232 K/MM3 129-368 MEAN PLATELET VOLUME (test code=MPV) 10.8 fl 7.4-10.4 NEUTROPHIL % (test code=NT%) 82.9 % 43-75 IMMATURE GRANULOCYTE % (test code=IG%) 0.5 % 0.0-2.0 LYMPHOCYTE % (test code=LY%) 12.1 % 14-44 MONOCYTE % (test code=MO%) 4.0 % 4-13 EOSINOPHIL % (test code=EO%) 0.1 % 0-6 BASOPHIL % (test code=BA%) 0.4 % 0-2 NUCLEATED RBC % (test code=NRBC%) 0.0 % 0-1.0 NEUTROPHIL # (test code=NT#) 12.37 K/mm3 2.0-7.6 IMMATURE GRANULOCYTE # (test code=IG#) 0.08 x10 3/uL 0-0.03 LYMPHOCYTE # (test code=LY#) 1.80 K/mm3 1.0-3.8 MONOCYTE # (test code=MO#) 0.60 K/mm3 0.1-0.8 EOSINOPHIL # (test code=EO#) 0.02 K/mm3 0.0-0.2 BASOPHIL # (test code=BA#) 0.06 K/mm3 0.0-0.2 NUCLEATED RBC # (test code=NRBC#) 0.00 K/mm3 0.0-0.1 - CT ANGIO [id number] 10:19:00 Name: CAITLIN CARDOSO [facility] : 1935 Age/S: 82 / M [address] [place] [address] Blvd Unit #: [id number] Loc: [facility] [id number] Phys: Manoj Walters MD Acct: [id number] Dis Date: Status: DEP CLI PHONE #: [phone] Exam Date: 07/01/2018 1515 FAX #: [phone] Reason: EVAL CAROTIDS Report Has Been Amended * * EXAMS: CPT CODE: [id number] CT ANGIO NECK [id number] Addendum - 07/17/2018 SIGNED 07/17/2018 ADDENDUM: [id number] CT/[id number] ADDENDUM: This case was discussed with Dr. Christy. Oblique sagittal imaging was performed. On sequence 11 image 17, there is only 40% narrowing within the left carotid bulb. This is not as pronounced as direct axial, coronal, and sagittal images. There is no diminished flow within the left ICA IMPRESSION: Oblique sagittal imaging demonstrates only a 40% stenosis within the left carotid bulb. SL: 01 at 1019 Reported and signed by: Adrian Long M.D. Report CTA neck with contrast 07/01/2018 HISTORY: Abnormal ultrasound. PROCEDURE: Multiple axial images from the skull base to the thoracic inlet were obtained the intravenous injection of 100 mL of Isovue-300. Coronal and sagittal MIP reconstructed images were performed. 3-D reconstruction images were performed. DLP: 241 ICA stenosis indirectly reference the distal internal carotid diameter as the denominator for stenosis measurement, utilizing consensus panel criteria for PQRS code. (NASCET) No prior exams are available for comparison FINDINGS: The visualized mastoid air cells are clear. Lung apices are clear. No lymphadenopathy, mass lesion, or fluid collection is present. Bilateral parotid glands and submandibular glands appear normal. Bilateral thyroid hypodensities may represent nodules or cysts. There are mild degenerative changes throughout the cervical PAGE 1 Signed Report (CONTINUED) Name: CAITLIN CARDOSO [facility] : 1935 Age/S: 82 / M [address] [place] [address] Blvd Unit #: [id number] Loc: [place] [address] Phys: Manoj Walters MD Acct: [id number] Dis Date: Status: DEP CLI PHONE #: [phone] Exam Date: 07/01/2018 1515 FAX #: [phone] Reason: EVAL CAROTIDS Report Has Been Amended EXAMS: CPT CODE: [id number] CT ANGIO NECK 52590 <Continued> spine. There aremild aortic arch calcifications. There are mild calcifications in the proximal portion of thebrachiocephalic artery. The bilateral subclavian arteries have normal caliber. Bilateral common carotid arteries are patent. There are mild calcifications within the left common carotid artery. There are moderate calcifications in the right carotid bulb with narrowing 60%.There are severe calcifications in the left carotid bulb with narrowing of 80%. Right vertebral artery is dominant. Left vertebral artery is patent with small caliber. The left vertebral artery may end in the left posterior inferior cerebellar artery. IMPRESSION: 1. 80% narrowing within left carotid bulb. 2. 60% narrowing within right carotid bulb. FOR INTERNAL CODING PURPOSES ONLY RESULT CODE: MAYTE DEGROOT: [id number] at 1645 Reported and signed by: Adrian Long M.D. CC: Manoj Walters MD Technologist:Roel Kolb, RT(R)(CT) CTDI: DLP: Trnscb Date/Time: 07/01/2018 (8601) [email or web address] Orig Print D/T: S: 07/01/2018 (1160) CTDI : DLP: PAGE 2 Signed Report
--- OUTSIDE RECORDS SUMMARY | 2019-07-08 15:29 | XMS REPORT | Encounter Summary ---
:1935 Author Care Team Providers Name Role Phone Dr. Payam Dumont Primary Care Provider [phone] Jaelyn Christy MD Administrative Services Manager [phone] Brittany Elizalde MD Cork Wirer [phone] Yaw Sneed MD Urologist [phone] Don suh MD Radiation Oncologist [phone] Reason for Visit Left leg problem; chronic conditions Instructions 1. Pain in left lower limb US, duplex, venous, lower extremity - *PLEASE CALL PT TO SCHEDULE * CK (creatine kinase), total, serum 2. Diabetes mellitus 3. Hypertensive disorder 4. Dyslipidemia 5. Chronic kidney disease stage 3 PTH (parathyroid hormone), intact, serum or plasma BMP, serum or plasma 6. Body mass index 25-29 - overweight aprenda acerca del peso saludable - [learning about healthy weight] Discussion Note: None recorded. Plan of Care Patient Instructions RTC 5 mo Reminders Provider Appointments Est Patient on or around Payam Dumont, 11/02/2019 Lab CK 06/04/2019 [facility] (Creatine Kinase), Practice Laboratory Total, Serum PTH 06/04/2019 [facility] (Parathyroid Practice Laboratory Hormone), Intact, Serum or Plasma BMP, Serum 06/04/2019 [facility] or Plasma Practice Laboratory Referral None recorded. Procedures None recorded. Surgeries None recorded. Imaging US, Duplex, 06/04/2019 [facility] Extremity Medications Name Start Date enalapril maleate 20 mg tablet Take 1 tablet every day by oral route. hydrochlorothiazide 25 mg tablet TOME DELMAR TABLETA TODOS LOS GU metformin 500 mg tablet Take 1 tablet every day by oral route. naproxen 500 mg tablet take one tablet twice a day as needed. OneTouch Delica Plus Lancet 33 gauge pravastatin 10 mg tablet Take 1 tablet [...] every day by oral route. Vitamin D2 1,250 mcg (50,000 unit) capsule Take 1 capsule every week by oral route. Medications Administered None recorded. Vitals Height Weight BMI Blood Pressure 5 ft 4 in 156.6 lbs 26.9 kg/m2 144/76 mm[Hg] Results Lab Results Date Name Specimen Result Interpretation Description Value Range Status Address 05/18/2019 Colon Stool Cologuard negative not Final Exact Cancer Result applicable Sciences Screening, Reportable Laboratories Stool (Cologuard Orders Only): [address], [place] 05/08/2019 Microalbumi Microalbumin 436 ug/mL Final [facility] n/creatinin Random Urine Family e, Mass Practice Ratio, Laboratory: Urine [address] Norm Creatinine 179.3 20.0-370.0 [facility] al Random Urine mg/dL mg/dL Family Practice [facility]: [facility] [address] High Microalbumin 243 Final [facility] /creatinine mcg/mg Family (Random creat Practice Urine) Ratio Laboratory: Calculated 9055 F[address] [place] [address] [place] 05/08/2019 HbA1C Norm Hemoglobin 5.4 % of <5.7 % of Final [facility] (Hemoglobin al a1C total HGB total HGB Family a1C), Blood Practice Laboratory: 9055 Fanta deion [place] [address] [place] EAG (mg/dL) 108 Final [facility] (calc) Family Practice Laboratory: [address] EAG (mmol/L) 6.0 [facility] (calc) Family Practice Laboratory: [address] Frantz Silvano [place] 05/08/2019 CBC W/ Auto Norm White Blood 9.8 3.8-10.8 Final [facility] Diff al Cell Count thousand/ thousand/uL Family uL Practice Laboratory: 9055 [address] deion [place] [address] [place] Low Red Blood 3.94 4.20-5.80 [facility] Cell Count million/u million/uL Family L Practice Laboratory: 55 Fanta deion [place] [address] [place] Low Hemoglobin 12.9 g/dL 13.2-17.1 [place] g/dL Family Practice Laboratory: 9055 Fanta Allen, [place] Low Hematocrit 37.2 % 38.5-50.0 % Final [facility] Family Practice Laboratory: 9055 Fanta Allen, [place]rade Norm Mcv 94.4 fL 80.0-100.0 Final [facility] al fL Family Practice Laboratory: 9055 Fanta Allen, Andrade Norm Mch 32.7 pg 27.0-33.0 Final [facility] pg Family Practice Laboratory: 9055 Fanta Allen, Andrade Norm Mchc 34.7 g/dL 32.0-36.0 Final [facility] al g/dL Family Practice Laboratory: 9055 Fanta Allen, And[place] Norm Rdw 11.7 % 11.0-15.0 % Final [facility] Family Practice Laboratory: 9055 Fanta Allen, [place] Norm Platelet 212 140-400 Final [facility] al Count thousand/ thousand/uL Family uL Practice Laboratory: 9055 Fanta Allen, [place]rade Norm Mpv 11.7 fL 7.5-12.5 fL Final [facility] al Family Practice Laboratory: 9055 Fanta Allen, Andrade Norm Absolute [phone] Final [facility] al Neutrophils cells/uL cells/uL Family Practice Laboratory: 9055 Fanta Allen, Andrade Norm Absolute [phone] Final [facility] al Lymphocytes cells/uL cells/uL Family Practice Laboratory: 9055 Fanta Allen, Andrade Norm Absolute 774 200-950 Final [facility] al Monocytes cells/uL cells/uL Family Practice Laboratory: 9055 Fanta Allen, Andrade Norm Absolute 323 15-500 Final [facility] al Eosinophils cells/uL cells/uL Family Practice Laboratory: 9055 Fanta Allen, Andarde Norm Absolute 69 0-200 Final [facility] al Basophils cells/uL cells/uL Family Practice Laboratory: 9055 [address], [place] Norm Neutrophils 68 % Final [facility] al Family Practice Laboratory: 9055 Fanta Allen, Andrade Norm Lymphocytes 20.1 % Final [facility] al Family Practice Laboratory: 9055 Fanta [address], [place] Norm Monocytes 7.9 % Final [facility] al Family Practice Laboratory: 9055 [address], [place] Norm Eosinophils 3.3 % Final [facility] al Family Practice Laboratory: 9055 [address], [place] Norm Basophils 0.7 % Final [facility] al Family Practice Laboratory: 9055 [address], [place] 05/08/2019 CMP, Serum Alt 21 U/L 0-55 U/L [place] or Plasma Family Practice Laboratory: [address] Ast 32 U/L 5-34 U/L [facility] [place] Family Practice Laboratory: [facility]055 [facility] Bun 23.7 8.4-25.0 [place] mg/dL mg/dL Family Practice Laboratory: [address]ry [address] [place] [address] Low Alk Phos 27 unit/L 40-150 Final [place] unit/L Family Practice Laboratory: [address] High Glucose 107 mg/dL 70-99 mg/dL Final [facility] Family Practice Laboratory: [address] Albumin 4.5 g/dL 3.4-5.1 [place] g/dL Family Practice Laboratory: [address] High Creatinine 1.46 0.72-1.25 [place] mg/dL mg/dL Family Practice Laboratory: [address] ABNO eGFR 46 Final [place] RMAL Non- mL/min/1. [facility] [place] 73m2 Practice Laboratory: [address]ry [address] [place] [address] Total 0.5 mg/dL 0.2-1.2 [place] Bilirubin mg/dL Family Practice Laboratory: [address] ABNO eGFR - 56 Final [place] RMAL mL/min/1. [facility] [place] 73m2 Practice Laboratory: [address] Sodium 137 mEq/L 135-145 [place] mEq/L Family Practice Laboratory: [address] Potassium 4.4 mEq/L 3.5-5.1 [place] mEq/L Family Practice Laboratory: [address] Chloride 101 98-110 [place] mmol/L mmol/L Family Practice Laboratory: 9055 [facility] Total 7.5 g/dL 6.1-8.2 [place] Protein g/dL Family Practice Laboratory: 9055 Fanta Ch [facility] Calcium 10.2 9.0-10.2 [place] mg/dL mg/dL Family Practice Laboratory: 9055 [address] Ch [place] [address], [place] Co2 28.5 20.0-32.0 [place] mmol/L mmol/L Family Practice Laboratory: [address] Anion Gap 8 calc Final [facility] Family Practice Laboratory: [address] 05/08/2019 Lipid Hdl 68 mg/dL Final [facility] Panel, Family Serum Practice Laboratory: [address] Triglyceride 120 mg/dL 0-150 mg/dL Final [facility] Family Practice Laboratory: [address] VLDL 24 mg/dL Final [facility] (Calculated) Family Practice Laboratory: [address] cholesterol/ 2.5 mg/dL Final [facility] HDL Ratio Family Practice Laboratory: [address] non-HDL 104 mg/dL 0-160 mg/dL Final [facility] Cholesterol Family (Calculated) Practice Laboratory: [address] Cholesterol 172 mg/dL 0-200 mg/dL Final [facility] Family Practice Laboratory: [address] LDL 80 mg/dL 0-130 mg/dL Final [facility] (Calculated) Family Practice Laboratory: [address] 05/08/2019 TSH, Serum Tsh 0.860 0.350-4.940 Final [facility] or Plasma uIU/mL uIU/mL [facility] Practice Laboratory: [address] 05/08/2019 Vitamin D, Vitamin D 59.9 30.0-96.0 Final [facility] 25-Hydroxy, 25OH NG/mL NG/mL [facility] Total, Practice Serum Laboratory: [address] 05/08/2019 PSA, Serum Norm PSA, Total <0.1 < or=4.0 Final [facility] or Plasma al NG/mL NG/mL [facility] Practice Laboratory: [address] Allergies Code Code System Name Reaction Severity Status Onset NKDA Problems Name Status Onset Date Source Tinea Cruris Active 02/06/2019 Diabetes Mellitus Active 02/06/2019 Vitamin D Deficiency Active 02/06/2019 Dyslipidemia Active 02/06/2019 Hypertensive Disorder Active 02/06/2019 Neck Pain Active 02/06/2019 History of Malignant Neoplasm of Prostate Active 02/06/2019 Microalbuminuric Diabetic Nephropathy Active 05/19/2019 Procedures Date Name Performed by 06/24/2016 Prostate Surgery Information not available 06/04/2019 US, Duplex, Venous, Lower Extremity [facility] [address] [facility] [address] [place] [address] (Work Place) Vaccine List Vaccine Type influenza, injectable, quadrivalent 01/22/2019 pneumococcal conjugate PCV 13 07/28/2018 10/08/2018 zoster recombinant 10/08/2018 Social History Tobacco Smoking Status Never Smoker Past Encounters 06/04/2019 Pain in Left Lower Limb; Diabetes Mellitus; Hypertensive Disorder; Dyslipidemia ; Chronic Kidney Disease Stage 3; Body Mass Index 25-29 - Overweight Payam Dumont MD: [address] [facility], [address], [place] [address], Ph. 05/08/2019 Diabetes Mellitus; Hypertensive Disorder; Dyslipidemia; Hypertriglyceridemia; Vitamin D Deficiency; Adult Health Examination; Screening for Malignant Neoplasm of Colon; Screening for Malignant Neoplasm of Prostate; Depression Screening; Advance Directive Discussed with Patient; Screening for Disorder; Body Mass Index 25-29 - Overweight Payam Dumont MD: [address] [facility] [address], [place] [address], Ph. [phone] History of Present Illness Note: <div>Leg Pain - calf pain, worst when walks.</div><div& gt;Rest helps.</div><div>No red / swell.</div><div>No trauma / fall / strain.</div><div>x 4wks.</div><div>No Tx.</div><div>
</div>diabetes mellitus - stable< div>metFORMIN 500 mg tablet - holding</div><div>
<div >hypertensive disorder - Stable but a little high. Taking meds. No problems with side effects or cost. </div><div>hydroCHLOROthiazide 25 mg tablet</div><div>enalapril maleate 20 mg tablet
</div&gt ;<div>verapamil ER (SR) 240 mg tablet,extended release
</div& gt;<div>
</div><div>dyslipidemia - Stable. Taking meds. No problems with side effects or cost.
</div><div> pravastatin 10 mg tablet
</div><div>
</div>& lt;div>hypertriglyceridemia - Stable. Taking meds. No problems withside effects or cost.
</div><div>Vascepa 1 gram capsule<br& gt;</div><div>
</div><div>vitamin D deficiency - Stable. Taking meds. No problems with side effects or cost.
</div ><div>Vitamin D2 50,000 unit capsule
</div><div>& lt;br></div><div>cologuard - d/w Pt
</div><div& gt;
</div><div>Your labs are normal except...
< /div><div>1.You are anemic. I will monitor.
</div>< div>2. Your kidney tests are a little abnormal. Drink water at least 4 times daily. I will recheck. Hold your Metformin for 2-3 wks.
</div>&lt ;div>3. You are leaking protein from your kidneys. We need to control all of your medical problems.</div></div><div>1. Your stool lab results are Normal.
</div><div>
</div> Review of Systems: ROS as noted in the [...] Heart Auscultation: RRR, normal S1, normal S2 Musculoskeletal:: Joints, Bones, and Muscles: tenderness; below Neurologic: Gait and Station: normal gait, normal station Notes: Lt Leg: Varicose vns, no red / swell. TTP. No cord.
--- OUTSIDE RECORDS SUMMARY | 2019-07-08 15:29 | XMS REPORT | Encounter Summary ---
:1935 Author Care Team Providers Name Role Phone Dr. Payam Dumont Primary Care Provider [phone] Jaelyn Christy MD Residential Support Specialist [phone] Brittany Elizalde MD Thread Machine Operator [phone] Yaw Sneed MD Urologist [phone] Don suh MD Radiation Oncologist [phone] Reason for Visit Left leg problem; Left foot pain Instructions 1. Plantar fasciitis podiatry referral Voltaren 1 % topical gel 2. Hypertensive disorder Discussion Note: None recorded.Patient educational handouts: No information available. Plan of Care Reminders Provider Appointments Est Patient on or around Payam Dumont, 11/02/2019 Lab None recorded. Referral Podiatry 06/22/2019 Wilman Harden Referral DPM Procedures None recorded. Surgeries None recorded. Imaging None recorded. Medications Name Start Date betamethasone dipropionate 0.05 % topical cream enalapril maleate 20 mg tablet Take 1 tablet every day by oral route. fluocinolone 0.025 % topical ointment hydrochlorothiazide 25 mg tablet TOME DELMAR TABLETA [...] oral route as needed for 30 days. Restasis 0.05 % eye drops in a dropperette tamsulosin 0.4 mg capsule per uro tramadol [...] 1 capsule every week by oral route. Voltaren 1 % topical gel APPLY 2 GRAMS TO THE AFFECTED AREA(S) BY TOPICAL ROUTE 4 TIMES PER DAY NEEDED Medications Administered None recorded. Vitals Height Weight BMI Blood Pressure 5 ft 4 in 156.6 lbs 26.9 kg/m2 187/94 mm[Hg] Results Lab Results None recorded. Allergies Code Code System Name Reaction Severity Status Onset NKDA Problems Name Status Onset Date Source Tinea Cruris Active 02/06/2019 Diabetes Mellitus Active 02/06/2019 Vitamin D Deficiency Active 02/06/2019 Dyslipidemia Active 02/06/2019 Hypertensive Disorder Active 02/06/2019 Neck Pain Active 02/06/2019 History of Malignant Neoplasm of Prostate Active 02/06/2019 Microalbuminuric Diabetic Nephropathy Active 05/19/2019 Chronic Kidney Disease Stage 3 Active 06/10/2019 Procedures Date Name Performed by 06/24/2016 Prostate Surgery Information not available 06/04/2019 US, Duplex, Venous, Lower Extremity [facility] [address] [address] (Work [address]) Vaccine List Vaccine Type influenza, injectable, quadrivalent 01/22/2019 pneumococcal conjugate PCV 13 07/28/2018 10/08/2018 zoster recombinant 10/08/2018 Social History Tobacco Smoking Status Never Smoker Past Encounters 06/22/2019 Plantar Fasciitis; Hypertensive Disorder [facility] [facility]: [address] [address], Ph. 06/04/2019 Pain in Left Lower Limb; Diabetes Mellitus; Hypertensive Disorder; Dyslipidemia ; Chronic Kidney Disease Stage 3; Body Mass Index 25-29 - Overweight Payam Dumont MD: [address] [address], Ph. [phone] History of Present Illness Lower Leg Reported By: Patient HPI: Location: left. Quality: stabbing, sharp. Timing: cannot identify. Alleviating Factors: sitting. Aggravating Factors: walking. Associated Symptoms: no tingling, no swelling Note: <div>83 yo male c/o left foot pain, worst with walking x 2 weeks. Rest help, denies redness or swelling. No trauma, fall. strain.</div& gt;<div>
</div><div>Hypertensive disorder - Stable, but a high due to pain. Taking meds. No problems with side effects or cost.< br></div><div><div>
</div></div> Review of Systems: ROS as noted in [...] increased frequency Musculoskeletal: Musculoskeletal: no muscle aches, arthralgias/joint pain Integumentary: Skin: no rashes Neurologic: Neurologic: no headaches Endocrine: Endocrine: no fatigue Hematologic/Lymphatic: Hematologic/Lymphatic no swollen glands Physical Exam Lower Leg, General Adult Exam (male) Reported By: Patient Constitutional: General Appearance: healthy-appearing, NAD, well-nourished, well-developed. Ambulation: ambulating normally Gait and Station: Appearance: normal station, limp Cardiovascular System: Heart Auscultation: RRR, normal S1, normal S2 Psychiatric: Mood and Affect: active and alert, normal affect, normal mood. Insight: good judgement Head: Head: normocephalic, atraumatic Lungs: Respiratory effort: no dyspnea. Auscultation: breath sounds normal, good air movement, CTA except as noted Musculoskeletal:: Joints, Bones, and Muscles: tenderness
--- OUTSIDE RECORDS SUMMARY | 2019-07-08 15:29 | XMS REPORT | Encounter Summary ---
:1935 Author Care Team Providers Name Role Phone Dr. Payam Dumont Primary Care Provider [phone] Jaelyn Christy MD Beet End Supervisor [phone] Brittany Elizalde MD In Home Sales Consultant [phone] Yaw Sneed MD Urologist [phone] Don suh MD Radiation Oncologist [phone] Reason for Visit Left leg problem; chronic [...] on or around Payam Dumont, 11/02/2019 Lab PTH 06/04/2019 [facility] (Parathyroid Practice Laboratory Hormone), Intact, Serum or Plasma BMP, Serum 06/04/2019 [facility] or Plasma Practice Laboratory CK 06/04/2019 [facility] (Creatine Kinase), Practice Laboratory Total, Serum Referral None recorded. Procedures None recorded. Surgeries None recorded. Imaging US, Duplex, 06/04/2019 [facility] Extremity [...] Alysia 05/08/2019 Microalbumi Microalbumin 436 ug/mL Final [facility] n/creatinin Random Urine Family e, Mass Practice Ratio, Laboratory: Urine [address] Norm Creatinine 179.3 20.0-370.0 [facility] al Random Urine mg/dL mg/dL Family [facility] [address] High Microalbumin 243 Final [facility] /creatinine mcg/mg Family (Random creat Practice Urine) Ratio Laboratory: Calculated 9[address] Fanta Castanedadeion [place] [address] [place] 05/08/2019 HbA1C Norm Hemoglobin 5.4 % of <5.7 % of Final [facility] (Hemoglobin al a1C total HGB total HGB Family a1C), Blood Practice Laboratory: 9055 Fanta deion [place] [address] [place] EAG (mg/dL) 108 Final [facility] (calc) Family Practice Laboratory: [address] EAG (mmol/L) 6.0 [facility] (calc) Family Practice Laboratory: 9[address] Fant[address] Ch Frantz Silvano [place] 05/08/2019 CBC W/ Auto Norm White Blood 9.8 3.8-10.8 Final [facility] Diff al Cell Count thousand/ thousand/uL Family uL Practice Laboratory: 9055 [address] deion [place] [address] [place] Low Red Blood 3.94 4.20-5.80 [facility] Cell Count million/u million/uL Family L Practice Laboratory: 55 Fanta deion [place] [address] [place] Low Hemoglobin 12.9 g/dL 13.2-17.1 [place] g/dL Family Practice Laboratory: 9055 Fanta Allen, [place] Low Hematocrit 37.2 % 38.5-50.0 % Final [facility] Family Practice Laboratory: 9055 Fanta Allen, [address] Norm Mcv 94.4 fL 80.0-100.0 Final [facility] al fL Family Practice Laboratory: 9055 Fanta Allen, [address] Norm Mch 32.7 pg 27.0-33.0 Final [facility] pg Family Practice Laboratory: 9055 Fanta Allen, [address] Norm Mchc 34.7 g/dL 32.0-36.0 Final [facility] al g/dL Family Practice Laboratory: 9055 Fanta Allen, [address] Norm Rdw 11.7 % 11.0-15.0 % Final [facility] Family Practice Laboratory: 9055 Fanta Allen, [address] Norm Platelet 212 140-400 Final [facility] al Count thousand/ thousand/uL Family uL Practice Laboratory: 9055 Fanta Allen, [address] Norm Mpv 11.7 fL 7.5-12.5 fL Final [facility] al Family Practice Laboratory: 9055 Fanta Allen, [address] Norm Absolute [phone] Final [facility] al Neutrophils cells/uL cells/uL Family Practice Laboratory: 9055 Fanat Allen, [address] Norm Absolute [phone] Final [facility] al Lymphocytes cells/uL cells/uL Family Practice Laboratory: 9055 Fanta Allen, [address] Norm Absolute 774 200-950 Final [facility] al Monocytes cells/uL cells/uL Family Practice Laboratory: 9055 Fanta Allen, [address] Norm Absolute 323 15-500 Final [facility] al Eosinophils cells/uL cells/uL Family Practice Laboratory: 9055 Fanta Allen, [address] Norm Absolute 69 0-200 Final [facility] al Basophils cells/uL cells/uL Family Practice Laboratory: 9055 [address], [address] Norm Neutrophils 68 % Final [facility] al Family Practice Laboratory: 9055 Fanta Allen, [address] Norm Lymphocytes 20.1 % Final [facility] al Family Practice Laboratory: 9055 [address], [address] Norm Monocytes 7.9 % Final [facility] al Family Practice Laboratory: 9[address] Norm Eosinophils 3.3 % Final [facility] al Family Practice Laboratory: 9[address] Norm Basophils 0.7 % Final [facility] al Family Practice Laboratory: 9055 [address] [address], [place] 05/08/2019 CMP, Serum Alt 21 U/L 0-55 U/L Final [place] or Plasma Family Practice Laboratory: [address] Ast 32 U/L 5-34 U/L Final [place] Family [facility] Laboratory: [facility]055 [facility] Bun 23.7 8.4-25.0 Final [place] mg/dL mg/dL Family Practice Laboratory: 9[address] Landry [address] [place] [address] Low Alk Phos 27 unit/L 40-150 Final [place] unit/L Family Practice Laboratory: [address] High Glucose 107 mg/dL 70-99 mg/dL Final [facility] Family Practice Laboratory: [address] Albumin 4.5 g/dL 3.4-5.1 Final [place] g/dL Family Practice Laboratory: [address] High Creatinine 1.46 0.72-1.25 Final [place] mg/dL mg/dL Family Practice Laboratory: [address] ABNO eGFR 46 Final [place] RMAL Non- mL/min/1. [facility] 73m2 Practice Laboratory: [address] [place] [address] Total 0.5 mg/dL 0.2-1.2 Final [place] Bilirubin mg/dL Family Practice Laboratory: [address] ABNO eGFR - 56 Final [place] RMAL mL/min/1. [facility] 73m2 Practice Laboratory: [address] Sodium 137 mEq/L 135-145 Final [place] mEq/L Family Practice Laboratory: [address] Potassium 4.4 mEq/L 3.5-5.1 Final [place] mEq/L Family Practice Laboratory: [address] Chloride 101 98-110 Final [place] mmol/L mmol/L Family Practice Laboratory: 9055 [facility] Total 7.5 g/dL 6.1-8.2 Final [place] Protein g/dL Family Practice Laboratory: 9055 [address] [facility] Calcium 10.2 9.0-10.2 Final [place] mg/dL mg/dL Family Practice Laboratory: 9[address] Ch [place] [address], [place] Co2 28.5 20.0-32.0 Final [place] mmol/L mmol/L Family Practice Laboratory: [address] Anion Gap 8 calc Final [facility] Family Practice Laboratory: [address] 05/08/2019 Lipid Hdl 68 mg/dL Final [facility] Panel, Family Serum Practice Laboratory: [address] Triglyceride 120 mg/dL 0-150 mg/dL Final [facility] Family Practice Laboratory: [address] VLDL 24 mg/dL Final [facility] (Calculated) Family Practice Laboratory: [address] cholesterol/ 2.5 mg/dL Final [facility] HDL Ratio Family Practice Laboratory: [address] non-HDL 104 mg/dL 0-160 mg/dL Final [facility] Cholesterol Family (Calculated) Practice Laboratory: [address] Cholesterol 172 mg/dL 0-200 mg/dL Final [facility] Family Practice Laboratory: [address] LDL 80 mg/dL 0-130 mg/dL Final [facility] (Calculated) Family Practice Laboratory: [address] 05/08/2019 TSH, Serum Tsh 0.860 0.350-4.940 Final [facility] or Plasma uIU/mL uIU/mL [facility] Practice Laboratory: [address] 05/08/2019 Vitamin D, Vitamin D 59.9 30.0-96.0 Final [facility] 25-Hydroxy, 25OH NG/mL NG/mL [facility] Total, Practice Serum Laboratory: [address] 05/08/2019 PSA, Serum Norm PSA, Total <0.1 < or=4.0 Final [facility] or Plasma al NG/mL NG/mL [facility] Practice Laboratory: [address] Allergies Code Code System Name Reaction [...] available 06/04/2019 US, Duplex, Venous, Lower Extremity [facility] [address] [facility] [address] [place] [address] (Work Place) Vaccine List Vaccine Type influenza, injectable, quadrivalent 01/22/2019 pneumococcal conjugate PCV 13 07/28/2018 10/08/2018 zoster recombinant 10/08/2018 Social History Tobacco Smoking Status Never Smoker Past Encounters 06/04/2019 Pain in Left Lower Limb; Diabetes Mellitus; Hypertensive Disorder; Dyslipidemia ; Chronic Kidney Disease Stage 3; Body Mass Index 25-29 - Overweight Payam Dumont MD: [address] [facility], [address], [place] [address], Ph. [phone] 05/08/2019 Diabetes Mellitus; Hypertensive Disorder; Dyslipidemia; Hypertriglyceridemia; Vitamin D Deficiency; Adult Health Examination; Screening for Malignant Neoplasm of Colon; Screening for Malignant Neoplasm of Prostate; Depression Screening; Advance Directive Discussed with Patient; Screening for Disorder; Body Mass Index 25-29 - Overweight Payam Dumont MD: [id number] [facility] [address], [place] [address], Ph. [phone] History of Present Illness Note: <div>Leg Pain [...]
--- NOTE | 2019-07-08 18:02 | RAD REPORT ---
EXAM DESCRIPTION: USExtremsarwat Venous Uni Ltd07/08/2019 5:55 pm CLINICAL HISTORY: left leg pain and swelling. COMPARISON: None. FINDINGS: Left common femoral, superficial femoral, popliteal and posterior tibial veins are compre ssible and demonstrate augmentation. Doppler demonstrates good flow. IMPRESSION: No evidence of deep venous thrombosis involving the left lower extremity.
--- NOTE | 2019-07-08 18:16 | RAD REPORT ---
EXAM DESCRIPTION: US - Lower Extremity Arterial Bilat - 07/08/2019 5:55 pm CLINICAL HISTORY: Leg swelling and pain COMPARISON: None FINDINGS: The left common femoral and left superficial femoral arteries are occluded. Collaterals re constitute the popliteal artery. Monophasic waveform left dorsalis pedis artery. Minimal flow is seen within the left posterior tibial artery The right common femoral and right superficial femoral arterial waveforms are biphasic. The right pos terior tibial, right dorsalis pedis and right popliteal arterial waveforms are monophasic IMPRESSION: Occlusion of the left common femoral left superficial femoral arteries with collaterals reconstituting the popliteal artery Moderate disease involving the distal arteries of the right lower extremity
--- NOTE | 2019-07-08 19:17 | RAD REPORT ---
EXAM DESCRIPTION: Jose Single View07/08/2019 6:49 pm CLINICAL HISTORY: Hypertension COMPARISON: none FINDINGS: The lungs appear clear of acute infiltrate. The heart is normal size IMPRESSION: No acute abnormalities displayed
[2019-07-08 19:28] LABS: Absolute Lymphocytes (CBC) 2.7 K/uL (0.7-4.9); Lymphocytes % 32.9 % (15.3-44.8); MPV 9.2 fL (7.6-11.3); RBC Red Blood Cell Count 3.98 M/uL (4.33-5.43)
[2019-07-08] MEDS ORDERED: HEPARIN/D5W 25,000 UNIT/500 ML BAG IV ONE (19:30)
[2019-07-08] MEDS ORDERED: HEPARIN 5000 UNIT/ML 1 ML VIAL ONE (19:30)
[2019-07-08] MEDS ORDERED: MORPHINE 2 MG/ML SYR ONE (19:30)
[2019-07-08 19:32] LABS: Protime INR 1.02
[2019-07-08 19:51] LABS: ALT/SGPT 28 U/L (12-78); AST/SGOT 24 U/L (15-37); Alkaline Phosphatase 31 U/L (45-117); BUN Blood Urea Nitrogen 29 mg/dL (7-18); Bicarbonate 24 mmol/L (21-32); Bilirubin Direct 0.2 mg/dL (0-0.2); Bilirubin Total 0.4 mg/dL (0.2-1.0); Glucose Level 102 mg/dL (74-106); NT PRO-BNP 132 pg/mL (<450); Potassium 3.7 mmol/L (3.5-5.1); Protein, Total 7.8 g/dL (6.4-8.2); Sodium Level 139 mmol/L (136-145); Troponin (Emerg Dept Use Only) < 0.02 ng/mL (0.0-0.045)
[2019-07-08] MEDS ORDERED: ALPRAZOLAM 0.25 MG TABLET PO PRN (19:57)
[2019-07-08] MEDS ORDERED: ACETAMINOPHEN 500 MG TAB PO PRN (19:57)
[2019-07-08] MEDS ORDERED: ONDANSETRON 4 MG/2 ML VIAL IV PRN (19:57)
[2019-07-08] MEDS ORDERED: D5W 1,000 ML with NA BICARB 8.4% 50 MEQ IV SCH ×2 (20:00)
--- NOTE | 2019-07-08 20:13 | ER ---
Nurse's Notes 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 sv 15:43 Method Of Arrival: Wheelchair sv 15:43 Acuity: LEO 3 sv 15:44 Presenting complaint: Patient states: Dr Benson sent him over here to be tested because sv he has an order for an US to r/o DVT. Onset of symptoms was July 08, 2019. 19:11 Risk Assessment: Do you want to hurt yourself or someone else? Patient reports no ph desire to harm self or others. Initial Sepsis Screen: Does the patient meet any 2 criteria? No. Patient's initial sepsis screen is negative. Does the patient have a suspected source of infection? No. Patient's initial sepsis screen is negative. Care prior to arrival: None. Triage Assessment: 19:10 General: Appears in no apparent distress. comfortable, Behavior is calm, cooperative, aa1 appropriate for age. Historical: - Allergies: 15:48 No Known Allergies; sv - Home Meds: 20:04 hydrochlorothiazide 25 mg Oral tab 1 tab once daily [Active]; verapamil 240 mg Oral aa1 TbER 1 tab once daily [Active]; omega-3 fatty acids 1,000 mg oral cap daily [Active]; enalapril maleate 20 mg Oral tab 1 tab once daily [Active]; cholecalciferol (vitamin D3) 50,000 unit oral cap daily [Active]; - PMHx: 20:04 Diabetes - NIDDM; Hypertension; prostate cancer; aa1 - PSHx: 15:43 prostate; sv - Immunization history:: Adult Immunizations unknown. - Social history:: Smoking status: Patient/guardian denies using tobacco. - Ebola Screening: : No symptoms or risks identified at this time. Screenin:50 Abuse screen: Denies threats or abuse. Denies injuries from another. Nutritional sg screening: No deficits noted. Tuberculosis screening: No symptoms or risk factors identified. Never had TB. Fall Risk None identified. Assessment: 16:50 Reassessment: Patient appears in no apparent distress at this time. Patient and/or sg family updated on plan of care and expected duration. Pain level reassessed. ultrasound at bedside at this time. 17:50 Reassessment: Patient appears in no apparent distress at this time. Patient and/or sg family updated on plan of care and expected duration. Pain level reassessed. Patient is alert, oriented x 3, equal unlabored respirations, skin warm/dry/pink. 19:10 Reassessment: Patient appears in no apparent distress at this time. Patient and/or aa1 family updated on plan of care and expected duration. Pain level reassessed. Patient is alert, oriented x 3, equal unlabored respirations, skin warm/dry/pink. Pain: Complains of pain in left leg Quality of pain is described as aching, Is continuous. Cardiovascular: Denies chest pain, shortness of breath, Pulses are 2+ in right dorsalis pedis artery and left dorsalis pedis artery Edema is absent. 20:10 Reassessment: Patient appears in no apparent distress at this time. Patient and/or aa1 family updated on plan of care and expected duration. Pain level reassessed. Patient is alert, oriented x 3, equal unlabored respirations, skin warm/dry/pink. Awaiting bed assignment. 21:00 Reassessment: Patient appears in no apparent distress at this time. Patient and/or aa1 family updated on plan of care and expected duration. Pain level reassessed. Patient is alert, oriented x 3, equal unlabored respirations, skin warm/dry/pink. Pt to be ER hold. Vital Signs: 15:42 BP 160 / 60; Pulse 54; Resp 16; Temp 97(TE); Pulse Ox 98% ; Weight 68.04 kg; Height 5 sv ft. 2 in. (157.48 cm); 19:10 BP 146 / 64; Pulse 72; Resp 16; Temp 98.2; Pulse Ox 95% on R/A; Pain 5/10; aa1 20:00 BP 142 / 77; Pulse 69; Resp 18; Pulse Ox 98% on R/A; Pain 0/10; aa1 21:00 BP 133 / 67; Pulse 80; Resp 16; Temp 97.2; Pulse Ox 99% on R/A; Pain 3/10; aa1 15:42 Body Mass Index 27.44 (68.04 kg, 157.48 cm) sv ED Course: 15:27 Patient arrived in ED. as 15:42 Arm band placed on. sv 15:43 Triage completed. sv 16:45 Henry Huertas FNP-C [facility]. la1 16:45 Leobardo Malloy MD is Attending Physician. la1 16:47 Jean Carlos Scott, RN is Primary Nurse. sg 17:56 US Lower Extremity Arterial Bilateral In Process Unspecified. EDMS 17:56 US Extremity Venous Unilateral Ltd In Process Unspecified. EDMS 18:47 XRAY Chest (1 view) In Process Unspecified. EDMS 19:10 Inserted saline lock: 22 gauge in right forearm, using aseptic technique. Blood ph collected. 19:10 EKG done, by ED staff, reviewed by Leobardo Malloy MD. aa1 19:11 Patient has correct armband on for positive identification. Bed in low position. Call ph light in reach. Side rails up X 1. Pulse ox on. NIBP on. Door closed. Noise minimized. Warm blanket given. 19:12 No provider procedures requiring assistance completed. ph 20:00 Patient admitted, IV remains in place. aa1 20:11 Neri Smith MD is Hospitalizing Provider. la1 21:45 Lights dimmed. Warm blanket given. Pillow given. aa1 Administered Medications: 19:01 CANCELLED (Duplicate Order): Heparin (DVT/PE- Bolus per protocol) - HEParin 80 units/kg ss IVP once; Max 8,000 units 19:01 CANCELLED (Duplicate Order): Heparin (DVT/PE Drip) 18 units/kg/hr - (HEParin 75970 ss units, D5W 500 ml) IV at calculated rate Per protocol; Max initial rate 1800 units/hr 19:25 Drug: morphine 2 mg Route: IVP; Site: right forearm; aa1 20:25 Follow up: Response: No adverse reaction; Pain is decreased; RASS: Alert and Calm (0) aa1 19:26 Drug: Heparin (WI-Bolus No thrombolytic) - HEParin 60 units/kg {Co-Signature: lp1 aa1 (Malika Alves RN).} Route: IVP; Site: right forearm; 20:26 Follow up: Response: No adverse reaction aa1 19:27 Drug: Heparin ([place] Drip) 12 units/kg/hr - (HEParin 25651 units, D5W 500 ml) aa1 {Co-Signature: lp1 (Malika Alves RN).} Route: IV; Rate: calculated rate; Site: right forearm; 20:27 Follow up: IV Status: Infusion continued upon admission aa1 07/09 00:27 Drug: morphine 2 mg Route: IVP; Site: left forearm; aa1 Outcome: 07/08 20:12 Decision to Hospitalize by Provider. la1 22:01 Admitted to ER Hold. Please see [facility] for further documentation. aa1 22:01 Condition: stable 22:01 Discharge instructions given to patient, family, Instructed on the need for admit, Demonstrated understanding of instructions. 07/09 09:58 Patient left the ED. ph Signatures: Dispatcher [employer] EDNaya Elliott RN RN Jean Carlos Scott RN RN Josy Schultz RN RN aa1 Lena Watson Lee, CHILD CARE LEAD TEACHER-C CHILD CARE LEAD TEACHER-Cla1 Stephanie Owen RN RN Regla Landis RN Malika Alves RN lp1 Corrections: (The following items were deleted from the chart) 07/08 15:43 15:42 Temp 97F Temporal; sv sv 15:49 15:42 BP 160 / 60; Pulse 54bpm; Resp 16bpm; Pulse Ox 98%; Temp 97F Temporal; sv sv
--- NOTE | 2019-07-08 20:13 | EDPHYS ---
Physician Documentation [facility] Name: Piero Reeves Age: 83 yrs Sex: Male : 1935 Arrival Date: 07/08/2019 Time: 15:27 Bed 25 Private MD: Leobardo Cesar HPI: 07/08 18:07 This 83 yrs old Male presents to ER via Wheelchair with complaints of sent by la1 dr for a venous to r/o dvt. 18:07 The patient presents with pain, that is chronic. The complaints affect the left calf. la1 Context:. Onset: The symptoms/episode began/occurred 2.5 month(s) ago. Modifying factors: The symptoms are alleviated by nothing. the symptoms are aggravated by nothing. Associated signs and symptoms: Pertinent negatives calf tenderness, fever, nausea, numbness, rash, swelling, tingling, vomiting, warmth, weakness. Severity of symptoms: At their worst the symptoms were moderate. pt was sent here after going to a commercial field inspector for foot/calf pain and the Dr. not being able to locate a pedal pulse in the left leg. Was sent here to ensure flow and R/O DVT. Historical: - Allergies: 15:48 No Known Allergies; sv - Home Meds: 20:04 hydrochlorothiazide 25 mg Oral tab 1 tab once daily [Active]; verapamil 240 mg Oral aa1 TbER 1 tab once daily [Active]; omega-3 fatty acids 1,000 mg oral cap daily [Active]; enalapril maleate 20 mg Oral tab 1 tab once daily [Active]; cholecalciferol (vitamin D3) 50,000 unit oral cap daily [Active]; - PMHx: 20:04 Diabetes - NIDDM; Hypertension; prostate cancer; aa1 - PSHx: 15:43 prostate; sv - Immunization history:: Adult Immunizations unknown. - Social history:: Smoking status: Patient/guardian denies using tobacco. - Ebola Screening: : No symptoms or risks identified at this time. ROS: 18:09 Constitutional: Negative for fever, chills, and weight loss, Eyes: Negative for injury, la1 pain, redness, and discharge, ENT: Negative for injury, pain, and discharge, Neck: Negative for injury, pain, and swelling, Cardiovascular: Negative for chest pain, palpitations, and edema, Respiratory: Negative for shortness of breath, cough, wheezing, and pleuritic chest pain, Abdomen/GI: Negative for abdominal pain, nausea, vomiting, diarrhea, and constipation, Back: Negative for injury and pain. 18:09 Skin: Negative for injury, rash, and discoloration, Neuro: Negative for headache, weakness, numbness, tingling, and seizure. 18:09 MS/extremity: Positive for pain, of the left leg. Exam: 18:09 Constitutional: This is a well developed, well nourished patient who is awake, alert, la1 and in no acute distress. Head/Face: Normocephalic, atraumatic. Eyes: Pupils equal round and reactive to light, extra-ocular motions intact. ENT: . Mucous membranes moist. Neck: Trachea midline,neck Supple, Chest/axilla: Normal chest wall appearance and motion. Cardiovascular: Regular rate and rhythm with a normal S1 and S2. No gallops, murmurs, or rubs. Normal PMI, no JVD. No pulse deficits. Respiratory: Lungs have equal breath sounds bilaterally, clear to auscultation . No rales, rhonchi or wheezes noted. No increased work of breathing, no retractions or nasal flaring. Abdomen/GI: Soft, non-tender, with normal bowel sounds. No distension or tympany. No guarding or rebound. No evidence of tenderness throughout. 18:09 Musculoskeletal/extremity: ROM: intact in all extremities, Pulses: are absent in the pulses not palpable in SANYA DP, Sensation intact. DVT Exam: no swelling, no tenderness, negative Homans' sign noted on exam, no appreciated bluish discoloration, no erythema, no increased warmth, pain. Vital Signs: 15:42 BP 160 / 60; Pulse 54; Resp 16; Temp 97(TE); Pulse Ox 98% ; Weight 68.04 kg; Height 5 sv ft. 2 in. (157.48 cm); 19:10 BP 146 / 64; Pulse 72; Resp 16; Temp 98.2; Pulse Ox 95% on R/A; Pain 5/10; aa1 20:00 BP 142 / 77; Pulse 69; Resp 18; Pulse Ox 98% on R/A; Pain 0/10; aa1 21:00 BP 133 / 67; Pulse 80; Resp 16; Temp 97.2; Pulse Ox 99% on R/A; Pain 3/10; aa1 15:42 Body Mass Index 27.44 (68.04 kg, 157.48 cm) sv MDM: 16:45 Patient medically screened. la1 16:49 Patient medically screened. hawa 20:10 Data reviewed: vital signs, nurses notes, lab test result(s), EKG, radiologic studies, la1 I have discussed the patient's presentation/case with the attending Emergency Department Physician; and as a result, I will admit patient. Data interpreted: Pulse oximetry: on room air is 95 %. Interpretation: acceptable. Counseling: I had a detailed discussion with the patient and/or guardian regarding: the historical points, exam findings, and any diagnostic results supporting the discharge/admit diagnosis, lab results, radiology results, the need for further work-up and treatment in the hospital. Physician consultation: Neri Smith MD was called at 20:10, was contacted at 20:10, regarding admission, to the telemetry unit. and will see patient in ED. 07/08 18:35 Order name: Basic Metabolic Panel co07/08 18:35 Order name: CBC with Diff; Complete Time: 19:43 [facility] 07/08 18:35 Order name: LFT's [facility] 07/08 18:35 Order name: Magnesium [facility] 07/08 18:35 Order name: NT PRO-BNP [facility] 07/08 18:35 Order name: PT-INR; Complete Time: 19:43 [facility] 07/08 18:35 Order name: Troponin (emerg Dept Use Only) [facility] 07/08 20:05 Order name: Urinalysis [facility] 07/08 20:05 Order name: CBC with Automated Diff [facility] 07/08 20:05 Order name: CBC with Automated Diff [facility] 07/08 20:05 Order name: Comprehensive Metabolic Panel [facility] 07/08 20:05 Order name: Comprehensive Metabolic Panel [facility] 07/08 20:05 Order name: Magnesium [facility] 07/08 20:05 Order name: Magnesium [facility] 07/08 15:52 Order name: US Lower Extremity Arterial Bilateral; Complete Time: 18:25 snw 07/08 15:52 Order name: US Extremity Venous Unilateral Ltd; Complete Time: 18:25 snw 07/08 18:35 Order name: XRAY Chest (1 view); Complete Time: 19:26 la1 07/08 20:05 Order name: Phosphorus [facility] 07/08 20:05 Order name: Phosphorus [facility] 07/08 20:05 Order name: Protime (+INR) [facility] 07/08 20:05 Order name: Protime (+INR) [facility] 07/08 20:05 Order name: PTT, Activated Partial Thromb [facility] 07/08 20:05 Order name: PTT, Activated Partial Thromb [facility] 07/08 20:05 Order name: Troponin I [facility] 07/08 20:06 Order name: Troponin I [facility] 07/08 20:06 Order name: Troponin I [facility] 07/09 01:33 Order name: PTT, Activated Partial Thromb [facility] 07/09 04:48 Order name: Glucose, Ancillary Testing [facility] 07/08 18:35 Order name: EKG; Complete Time: 18:35 07/08 18:35 Order name: Cardiac monitoring; Complete Time: 19:09 07/08 18:35 Order name: EKG - Nurse/Tech; Complete Time: 19:22 07/08 18:35 Order name: IV Saline Lock; Complete Time: 19:09 07/08 18:35 Order name: Labs collected and sent; Complete Time: 19:09 07/08 18:35 Order name: O2 Per Protocol; Complete Time: 19:09 07/08 18:35 Order name: O2 Sat Monitoring; Complete Time: 19:09 07/08 20:05 Order name: CONS Physician Consult [facility] 07/08 20:05 Order name: NPO [facility] Administered Medications: 19:01 CANCELLED (Duplicate Order): Heparin (DVT/PE- Bolus per protocol) - HEParin 80 units/kg ss IVP once; Max 8,000 units 19:01 CANCELLED (Duplicate Order): Heparin (DVT/PE Drip) 18 units/kg/hr - (HEParin 20878 ss units, D5W 500 ml) IV at calculated rate Per protocol; Max initial rate 1800 units/hr 19:25 Drug: morphine 2 mg Route: IVP; Site: right forearm; aa1 20:25 Follow up: Response: No adverse reaction; Pain is decreased; RASS: Alert and Calm (0) aa1 19:26 Drug: Heparin (NH-Bolus No thrombolytic) - HEParin 60 units/kg {Co-Signature: lp1 aa1 (Malika Alves RN).} Route: IVP; Site: right forearm; 20:26 Follow up: Response: No adverse reaction aa1 19:27 Drug: Heparin (NH Drip) 12 units/kg/hr - (HEParin 96659 units, D5W 500 ml) aa1 {Co-Signature: lp1 (Malika Alves RN).} Route: IV; Rate: calculated rate; Site: right forearm; 20:27 Follow up: IV Status: Infusion continued upon admission aa1 07/09 00:27 Drug: morphine 2 mg Route: IVP; Site: left forearm; aa1 Disposition: 07/10 06:55 Co-signature as Attending Physician, Leobardo Malloy MD I agree with the assessment and hawa plan of care. Disposition: 07/08/19 20:12 Hospitalization ordered by Neri Smith for Inpatient Admission. 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 - Bed requested for Telemetry/MedSurg (Inpatient). - Status is Inpatient Admission. ph - Condition is Stable. - Problem is new. - Symptoms are unchanged. UTI on Admission? No Signatures: Dispatcher [employer] EDMS Olesya Seo RN RN kl Verde, Stephanie RN RN Josy Nolasco RN RN aa1 Leobardo Malloy MD MD cha Smirch, Shelby, RN RN ss Henry Huertas, JURY CONSULTANT-C JURY CONSULTANT-Cla1 Subha Salazar RN RN tl1 Stephanie Owen RN RN Maliak Alves RN lp1 Corrections: (The following items were deleted from the chart) 07/08 18:15 18:09 Musculoskeletal/extremity: ROM: intact in all extremities, Pulses: noted to be 1+ la1 in the right dorsalis pedis artery and left dorsalis pedis artery, Perfusion: the patient is pink, cool, have sluggish capillary refill, Sensation intact. la1 19: 18:59 Heparin (DVT/PE- Bolus per protocol) - HEParin 80 units/kg IVP once; Max 8,000 ss units ordered. la1 19: 18:59 Heparin (DVT/PE Drip) 18 units/kg/hr - (HEParin 45706 units, D5W 500 ml) IV at ss calculated rate Per protocol; Max initial rate 1800 units/hr ordered. la1 20:22 20:12 Hospitalization Ordered by Neri Smith MD for Inpatient Admission. 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 Bed requested for Telemetry/MedSurg (Inpatient). Status is Inpatient Admission. Condition is Stable. Problem is new. Symptoms are unchanged. UTI on Admission? No. la1 07/09 07:41 07/08 20:22 07/08/2019 20:12 Hospitalization Ordered by Neri Smith MD for Inpatient kl Admission. 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 Bed requested for [facility] ER HOLD. Status is Inpatient Admission. Condition is Stable. Problem is new. Symptoms are unchanged. UTI on Admission? No. tl1 07/09 09:58 07:41 07/08/2019 20:12 Hospitalization Ordered by Neri Smith MD for Inpatient ph Admission. 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 Bed requested for Telemetry/MedSurg (Inpatient). Status is Inpatient Admission. Condition is Stable. Problem is new. Symptoms are unchanged. UTI on Admission? No. kl
[2019-07-08] MEDS: ACETYLCYST 6,000 MG/30 ML VIAL PO SCH (21:00)
[2019-07-08] MEDS ORDERED: ACETYLCYST 6,000 MG/30 ML VIAL PO ONE (21:29)
[2019-07-08 22:34] VITALS: BMI 27.4
[2019-07-08] MEDS ORDERED: D5W 1,000 ML IV ONE (23:03)
[2019-07-09] MEDS ORDERED: MORPHINE 2 MG/ML SYR ONE ×3 (00:26→08:18)
[2019-07-09 04:58] LABS: Absolute Lymphocytes (CBC) 2.5 K/uL (0.7-4.9); Basophils % 1.1 % (0-1.3); MPV 9.8 fL (7.6-11.3); RBC Red Blood Cell Count 3.77 M/uL (4.33-5.43)
[2019-07-09 05:02] LABS: Protime INR 1.14
[2019-07-09] MEDS: MORPHINE 2 MG/ML SYR IV PRN ×2 (05:02→15:08)
[2019-07-09 05:09] LABS: Albumin 3.5 g/dL (3.4-5.0); Bilirubin Total 0.5 mg/dL (0.2-1.0); Phosphorus 3.9 mg/dL (2.5-4.9); Potassium 3.7 mmol/L (3.5-5.1); Protein, Total 6.8 g/dL (6.4-8.2)
[2019-07-09] MEDS ORDERED: KCL 20 MEQ/100 mL IVPB 20 MEQ/100 ML BAG IV ONE (06:52)
[2019-07-09] MEDS ORDERED: ONDANSETRON 4 MG/2 ML VIAL ONE (08:18)
--- NOTE | 2019-07-09 08:31 | P.HP ---
Certification for Inpatient Patient admitted to: Inpatient With expected LOS: >2 Midnights Patient will require the following post-hospital care: None Practitioner: I am a practitioner with admitting privileges, knowledge of patient current condition, hospital course, and medical plan of care. Services: Services provided to patient in accordance with Admission requirements found in Title 42 Section 412.3 of the Code of Federal Regulations Patient History Date of Service: 07/08/19 Reason for admission: LOWER EXTREMITY PAIN AND CLAUDICATION History of Present Illness: Patient is a an 83-year-old gentleman who is been suffering from lower extremity pain for the last year. His symptoms have been worsening so he came into the ER for further evaluation. In the emergency room he had Dopplers of his lower extremity which revealed severe occlusion of the left femoral artery. Patient did have collaterals to the lower limb, does patient slower extremities were warm. Patient has also been started on a heparin drip. Cardiology has been notified and at this time plan is for possible angiogram in a.m.. Will keep patient NPO after midnight. Heparin protocol and check PTT every 6 hours. Patient will be admitted for further workup. Allergies No Known Allergies Allergy (Verified 07/08/19 20:39) Home Medications: Cholecalciferol (Vitamin D3) [Dialyvite Vitamin D3 Max] 50,000 unit PO DAILY Enalapril Maleate [Vasotec] 20 mg PO DAILY 07/08/19 [place]-3/Dha/Epa/Fish Oil [[place] 3 500 Softgel] 1,000 mg PO DAILY 07/08/19 Verapamil HCl [Verapamil ER] 240 mg PO DAILY 07/08/19 hydroCHLOROthiazide [Hydrochlorothiazide] 25 mg PO DAILY 07/08/19 - Past Medical/Surgical History Has patient received pneumonia vaccine in the past: Yes Diabetic: Yes -: diabetes -: Hypertension -: Prostate cancer Past Surgical History: Patient denies surgical history - Family History Father Family History: Reviewed- Non-Contributory - Social History Smoking Status: Never smoker Alcohol use: Yes CD- Drugs: No Caffeine use: Yes Place of Residence: Home Review of Systems 10-point ROS is otherwise unremarkable Physical Examination - Vital Signs Temperature: 97.4 F Blood Pressure: 127/64 Pulse: 60 Respirations: 16 Pulse Ox (%): 98 - Physical Exam General: Alert, In no apparent distress, Oriented x3 HEENT: Atraumatic, PERRLA, Mucous membr. moist/pink, EOMI, Sclerae nonicteric Neck: Supple, 2+ carotid pulse no bruit, No LAD, Without JVD or thyroid abnormality Respiratory: Clear to auscultation bilaterally, Normal air movement Cardiovascular: Regular rate/rhythm, Normal S1 S2, No murmurs Gastrointestinal: Normal bowel sounds, Soft and benign, Non-distended, No tenderness Musculoskeletal: No clubbing, No swelling, No tenderness, Other ( Diminished pulses of the lower extremity 1+) Integumentary: No rashes Neurological: Normal gait, Normal speech, Normal strength at 5/5 x4 extr, Normal tone, Sensation intact, Cranial nerves 3-12 intact, Normal affect Lymphatics: No axilla or inguinal lymphadenopathy - Studies Laboratory Data (last 24 hrs) 07/08/19 19:05: PT 12.0, INR 1.02 07/08/19 19:05: WBC 8.2, Hgb 12.5 L, Hct 37.0 L, Plt Count 188 07/08/19 19:05: Sodium 139, Potassium 3.7, BUN 29 H, Creatinine 1.44 H, Glucose 102, Magnesium 2.0, Total Bilirubin 0.4, AST 24, ALT 28, Alkaline Phosphatase 31 L Assessment & Plan - Problems (Diagnosis) (1) Occlusion of left femoral artery Current Visit: Yes Status: Acute (2) Peripheral arterial disease Current Visit: Yes Status: Acute (3) HTN (hypertension) Current Visit: Yes Status: Acute (4) DM2 (diabetes mellitus, type 2) Current Visit: Yes Status: Acute - Plan plan: 1. NPO after midnight 2. Pain control 3. Arterial Doppler revealed left femoral artery occlusion. Patient will get the angiogram in a.m. with possible stent placement 4. Continue anticoagulation 5. Mucomyst and bicarb drip at a low rate for renal protection. Patient will continue Mucomyst for 48 hours 6. heparin drip per protocol 7. GI and DVT prophylaxis Discharge Plan: Home Plan to discharge in: Greater than 2 days - Advance Directives Does patient have a Living Will: No Does patient have a Durable POA for Healthcare: No - Code Status/Comfort Care Code Status Assessed: Yes Code Status: Full Code Critical Care: No Time Spent Managing PTS Care (In Minutes): 45
[2019-07-09] MEDS: ACETYLCYST 6,000 MG/30 ML VIAL PO SCH (09:00)
[2019-07-09] MEDS ORDERED: NA CHLORIDE 0.9% 1,000 ML IV SCH (11:00)
--- NOTE | 2019-07-09 11:00 | EKG ---
Test Date: 2019-07-08 Test Time: 19:21:07 Automation Qtp Tester: ANTONIA MEASUREMENT RESULTS: Intervals: Rate: 64 NC: 128 QRSD: 152 QT: 466 QTc: 480 [place]: P: 7 NC: 128 QRS: -2 T: 2 INTERPRETIVE STATEMENTS: Normal sinus rhythm Right bundle branch block Abnormal ECG Compared to ECG 04/16/2012 12:21:37 No significant changes Electronically Signed On 07-09-19 10:58:19 PLAY LEADER by Marcell Troy
[2019-07-09] MEDS ORDERED: HEPA 1000U/500MLS 1,000 UNIT/500 ML BAG IV ONE ×2 (11:22→12:03)
[2019-07-09] MEDS ORDERED: MIDAZOLAM HCL 2 MG/2 ML INJ ONE (12:01)
[2019-07-09] MEDS ORDERED: FENTANYL CITR 100 MCG/2 ML ONE (12:02)
--- NOTE | 2019-07-09 14:53 | P.DS ---
Admission Date: 07/08/19 Discharge Date: 07/09/19 Primary Care Provider: Nisreen PCP Disposition: ROUTINE DISCHARGE Discharge Condition: GOOD Reason for Admission: LOWER EXTREMITY PAIN AND CLAUDICATION Consultations: Cardiology-Dr. Troy Procedures: Angiogram of lower extremities Medical Problem List: Lower extremity pain secondary to occlusion of left common femoral status post angiogram showing severe peripheral vascular disease Diabetes mellitus type 2 [id number] Hypertension Diabetic neuropathy Chronic renal disease stage III Hyperlipidemia Brief History of Present Illness: 83-year-old male with history of hypertension, diabetes presented with pain to the lower extremity. Patient has noted chronic pain to the lower extremity. Patient was evaluated in the emergency room. Patient found to have severe PAD. Patient was admitted for further evaluation. Hospital Course: Patient presented with lower extremity pain. Patient found to have occlusion of left common femoral artery. Patient was admitted for further evaluation. Patient had angiogram by cardiology. Patient has severe peripheral vascular disease. Cardiology recommends cardiovascular evaluation as an outpatient to further address. Patient may require left femoral popliteal bypass. Patient will require outpatient stress tests initially. New medication include aspirin and Plavix. At discharge patient will continue with aspirin 81 mg daily and Plavix 75 mg daily. Patient will need follow up with cardiology in 1-2 weeks for outpatient stress test and for referral to cardiovascular surgery to further evaluate and address. Patient with diabetes mellitus type 2 non-insulin dependent. Patient recently on metformin but this was discontinued by his PCP due to his renal disease. A1c 6.0. Blood sugar well controlled at this time. Will recommend to monitor blood sugars at least twice daily. Recommend to maintain blood sugars less than 140 fasting and less than 200 after meals. If blood sugar remains above 200 patient may require medication. Patient would likely benefit with glimepiride. I will recommended no medication at this time since A1c is 6.0 and blood sugars well controlled. This can be further addressed by his PCP. Recommend to continue with a 2000 ADA diet. Patient with hypertension. At discharge patient will continue with Vasotec 20 mg daily, hydrochlorothiazide 25 mg daily, and verapamil ER 240 mg daily. Recommend blood pressure to maintain less than 150/80. Further adjustment can be done by his PCP. Patient with hyperlipidemia. Will recommend to check fasting lipid panel as an outpatient as patient may require statin medication. Patient may continue with omega-3 medication. Patient with chronic renal disease stage III. Will recommend to recheck lab- BMP in 1 week. Patient may benefit with nephrology evaluation as an outpatient to further monitor and address. Please note metformin discontinued due to chronic renal disease. Recommend no further use of nonsteroidal anti- inflammatories. Future medications will need to be renally dose. Patient may have underlying diabetic neuropathy. Patient may benefit with gabapentin 100 mg 3 times a day as needed for pain. If patient continues with pain to the lower extremities, patient may also require further evaluation for possible underlying spinal stenosis. Patient may benefit with MRI of lumbar spine to further evaluate if this continues. Vital Signs/Physical Exam: Temp Pulse Resp BP Pulse Ox 98 F 59 16 177/88 H 95 07/09/19 12:00 07/09/19 13:45 07/09/19 13:45 07/09/19 13:45 07/09/19 12:00 General: Alert, In no apparent distress, Oriented x3 HEENT: Atraumatic Neck: Supple Respiratory: Clear to auscultation bilaterally Cardiovascular: Normal pulses, Regular rate/rhythm Gastrointestinal: Normal bowel sounds, Soft and benign, Non-distended Musculoskeletal: No erythema, No tenderness, No warmth Integumentary: No tenderness/swelling, No erythema, No warmth, No cyanosis Neurological: Normal speech, Normal strength at 5/5 x4 extr, Normal tone Laboratory Data at Discharge: WBC 8.2 K/uL (4.3-10.9) 07/09/19 04:37 Hgb 12.1 g/dL (13.6-17.9) L 07/09/19 04:37 Hct 35.0 % (39.6-49.0) L 07/09/19 04:37 Plt Count 204 K/uL (152-406) 07/09/19 04:37 PT 13.4 SECONDS (9.5-12.5) H 07/09/19 04:37 INR 1.14 07/09/19 04:37 APTT 57.0 SECONDS (24.3-36.9) H 07/09/19 04:37 Sodium 139 mmol/L (136-145) 07/09/19 04:37 Potassium 3.7 mmol/L (3.5-5.1) 07/09/19 04:37 BUN 28 mg/dL (7-18) H 07/09/19 04:37 Creatinine 1.31 mg/dL (0.55-1.3) H 07/09/19 04:37 Glucose 131 mg/dL (74-106) H 07/09/19 04:37 Phosphorus 3.9 mg/dL (2.5-4.9) 07/09/19 04:37 Magnesium 2.0 mg/dL (1.8-2.4) 07/09/19 04:37 Total Bilirubin 0.5 mg/dL (0.2-1.0) 07/09/19 04:37 AST 29 U/L (15-37) 07/09/19 04:37 ALT 31 U/L (12-78) 07/09/19 04:37 Alkaline Phosphatase 26 U/L (45-117) L 07/09/19 04:37 Troponin I < 0.02 ng/mL (0.0-0.045) 07/09/19 04:37 Home Medications: Cholecalciferol (Vitamin D3) [Dialyvite Vitamin D3 Max] 50,000 unit PO DAILY Enalapril Maleate [Vasotec] 20 mg PO DAILY 07/08/19 [place]-3/Dha/Epa/Fish Oil [[place] 3 500 Softgel] 1,000 mg PO DAILY 07/08/19 Verapamil HCl [Verapamil ER] 240 mg PO DAILY 07/08/19 hydroCHLOROthiazide [Hydrochlorothiazide] 25 mg PO DAILY 07/08/19 Aspirin [Aspirin EC 81 MG] 81 mg PO DAILY #90 tablet. 07/09/19 Clopidogrel Bisulfate [Plavix] 75 mg PO DAILY #30 tablet 07/09/19 Gabapentin [Neurontin*] 100 mg PO TID PRN #30 cap 07/09/19 New Medications: Aspirin [Aspirin EC 81 MG] 81 mg PO DAILY #90 tablet. Clopidogrel Bisulfate [Plavix] 75 mg PO DAILY #30 tablet Gabapentin [Neurontin*] 100 mg PO TID PRN #30 cap PRN Reason: Pain Scale 2-4 (Mild) Patient Discharge Instructions: 1. Recommend follow up with PCP within 1-2 weeks to follow up this hospitalization. 2. Patient presented with lower extremity pain. Patient found to have occlusion of left common femoral artery. Patient was admitted for further evaluation. Patient had angiogram by cardiology. Patient has severe peripheral vascular disease. Cardiology recommends cardiovascular evaluation as an outpatient to further address. Patient may require left femoral popliteal bypass. Patient will require outpatient stress tests initially. New medication include aspirin and Plavix. At discharge patient will continue with aspirin 81 mg daily and Plavix 75 mg daily. Patient will need follow up with cardiology in 1-2 weeks for outpatient stress test and for referral to cardiovascular surgery to further evaluate and address. 3. Patient with diabetes mellitus type 2 non-insulin dependent. Patient recently on metformin but this was discontinued by his PCP due to his renal disease. A1c 6.0. Blood sugar well controlled at this time. Will recommend to monitor blood sugars at least twice daily. Recommend to maintain blood sugars less than 140 fasting and less than 200 after meals. If blood sugar remains above 200 patient may require medication. Patient would likely benefit with glimepiride. I will recommended no medication at this time since A1c is 6.0 and blood sugars well controlled. This can be further addressed by his PCP. Recommend to continue with a 2000 ADA diet. 4. Patient with hypertension. At discharge patient will continue with Vasotec 20 mg daily, hydrochlorothiazide 25 mg daily, and verapamil ER 240 mg daily. Recommend blood pressure to maintain less than 150/80. Further adjustment can be done by his PCP. 5. Patient with hyperlipidemia. Will recommend to check fasting lipid panel as an outpatient as patient may require statin medication. Patient may continue with omega-3 medication. 6. Patient with chronic renal disease stage III. Will recommend to recheck lab-BMP in 1 week. Patient may benefit with nephrology evaluation as an outpatient to further monitor and address. Please note metformin discontinued due to chronic renal disease. Recommend no further use of nonsteroidal anti-inflammatories. Future medications will need to be renally dose. 7. Patient may have underlying diabetic neuropathy. Patient may benefit with gabapentin 100 mg 3 times a day as needed for pain. If patient continues with pain to the lower extremities, patient may also require further evaluation for possible underlying spinal stenosis. Patient may benefit with MRI of lumbar spine to further evaluate if this continues. Diet: ADA Activity: Fall precautions Time spent managing pt's care (in minutes): 55
[2019-07-09 16:35] VITALS: O2SAT 99
[2019-07-09 18:08] VITALS: BP 164/74; TEMP 97.2
--- NOTE | 2019-07-09 20:55 | CON ---
Reason For Consultation: Peripheral arterial disease. History Of Present Illness: Mr. Reeves is 83, came into the emergency room initially with edema of the left lower extremity. Venous Doppler was negative, however, arterial Doppler then showed complet e occlusion of the iliac and SFA. Patient was having pain at rest and with exertion consistent with severe claudication. It was decided to admit him with the possibility of him having acute closure of his SFA. Past Medical History: Includes hypertension, diabetes, and prostate cancer. Allergies: NONE. Review of Systems: Negative. Social History: Negative. Family History: Negative. Medications: Include enalapril, hydrochlorothiazide, verapamil, fish oil. Physical Examination: Vital Signs: Stable. He was afebrile, he was in no acute distress. HEENT: Negative. Neck: Supple without any bruit, lymphadenopathy, JVD, or thyromegaly. Chest: Clear to auscultation and percussion. Cardiac: Exam revealed a regular rhythm and rate. No murmurs, gallops, or rubs. Abdomen: Benign. Extremities: Revealed no clubbing, cyanosis. He had 1+ edema in the left lower extremity. He had n o pulses in the dorsalis pedis and posterior tibial bilaterally. He had a good femoral pulse bilater ally. Imaging Studies: EKG was unremarkable. Chest x-ray was negative. Impression And Plan: Severe peripheral arterial disease with claudication and rest pain and edema in the left lower extremity. The plan will be to perform an abdominal angiogram with runoff. I will o btain an echocardiogram as well just because of his high risk factors to rule out any wall motion abn ormalities or congestive heart failure. His blood pressure is well controlled. His diabetes is well controlled. NB/MODL Voice ID: [id number] Report ID: [id number]
[2019-07-09] MEDS ORDERED: ACETYLCYST 20% 800 MG/4 ML VIAL PO SCH (21:00)
--- NOTE | 2019-07-09 21:58 | OP ---
Date of Procedure: 07/09/2019 Surgeon: Marcell Troy MD [employer] Technician: Candace Mercer. Procedure: Abdominal angiogram with runoff. Indications: Claudication and peripheral arterial disease. History: Mr. Reeves is 83, has a history of hypertension, diabetes, came in with acute left lower e xtremity pain and edema. Negative venous Doppler. Positive arterial Doppler. Description Of Procedure: He was brought to the labor crew supervisor, prepped and draped in the routine sterile fashion. A 6-Setswana sheath introduced in the right common femoral artery successfully. Angiography there was normal. StarClose was used to close the case. A pigtail catheter 6-Setswana was advanced ab ove the renals at the aorta. Abdominal angiogram was done with runoff. The patient was noted to hav e diffuse plaquing throughout the right SFA with severe disease below the knee with complete occlusio n of his posterior tibial and peroneal. On the left side, both iliacs were normal. The renals were normal. He had a dual left renal artery system. His aorta was actually normal, but he had a complet e occlusion of his left SFA that reconstitutes at the popliteal level. Below the knee on the left he also had a complete occlusion of his posterior tibial and the peroneal artery. His anterior tibia w as patent. Complications: There were no complications. Blood Loss: 5 mL. Final Diagnosis: Severe PAD. Plan: The plan is for a left femoral-popliteal at convenience. [facility] [place] I would like him to have a cardiac clearance before that with a Lexisca n and see what his echocardiogram shows. I think so it would be aspirin and Plavix and maybe a calci um channel dunia such as Norvasc may be helpful as far as the symptoms are concerned meanwhile. Th e case was discussed in detail regarding his anatomy with the family. They understand that it may be very difficult to work on any of his blood vessel below the knees bilaterally. Anesthesia: Total conscious sedation was 30 minutes NB/MODL Voice ID: [id number] Report ID: [id number]
--- NOTE | 2019-07-10 08:30 | ECHO ---
HEIGHT: 5 ft 2 in WEIGHT: 150 lb 0 oz DATE OF STUDY: 07/09/[address]: Marcell Troy MD 2-DIMENSIONAL: YES M.MODE: YES DOPPLER: YES COLOR FLOW: YES TDS: NO PORTABLE: NO DEFINITY: NO BUBBLE STUDY: NO DIAGNOSIS: HYPERTENSION/ABNORMAL EKG CARDIAC HISTORY: CATHERIZATION: YES SURGERY: NO PROSTHETIC VALVE: NO PACEMAKER: NO MEASUREMENTS (cm) DIASTOLIC (NORMALS) SYSTOLIC (NORMALS) IVSd 1.0 (0.6-1.2) LA Diam 2.9 (1.9-4.0) LVEF 66% LVIDd 4.9 (3.5-5.7) LVIDs 3.1 (2.0-3.5) %FS 36% LVPWd 0.9 (0.6-1.2) Ao Diam 2.4 (2.0-3.7) 2 DIMENSIONAL ASSESSMENT: RIGHT ATRIUM: NORMAL LEFT ATRIUM: NORMAL RIGHT VENTRICLE: NORMAL LEFT VENTRICLE: NORMAL TRICUSPID VALVE: NORMAL MITRAL VALVE: MITRAL ANNULAR CALCIFICATION PULMONIC VALVE: NORMAL AORTIC VALVE: NORMAL PERICARDIAL EFFUSION: NONE AORTIC ROOT: NORMAL LEFT VENTRICULAR WALL MOTION: NORMAL. DOPPLER/COLOR FLOW: NORMAL. COMMENTS: NORMAL LEFT VENTRICULAR SIZE AND FUNCTION. NO WALL MOTION ABNORMALITY. NO EFFUSION. MITRAL ANNULAR CALCIFICATION. TECHNOLOGIST: JAKE MENDES
== END 2019-07-09 18:25 | disposition home or self-care (01) | DRG 301 ==
LOC: ER 15:22 → ERHOLD 19:58 → 2ND 07-09 09:39
PROVIDERS: ADMIT Hospitalist; ATTEND Family Medicine
PROC: B40DYZZ Plain Radiography of Aorta and Bilateral Lower Extremity Arteries using Other Contrast (ICD-10-PCS; principal; 2019-07-09)
DX: I70.212 Atherosclerosis of native arteries of extremities with intermittent claudication, left leg (principal); I10 Essential (primary) hypertension; E11.22 Type 2 diabetes mellitus with diabetic chronic kidney disease; I12.9 Hypertensive chronic kidney disease with stage 1 through stage 4 chronic kidney disease, or unspecified chronic kidney disease; N18.3 Chronic kidney disease, stage 3 (moderate); E78.5 Hyperlipidemia, unspecified
CPT/HCPCS: 36200; 36415; 71045; 75630; 80048; 80053; 80076; 82947; 83036; 83735; 83880; 84100; 84484; 85025; 85610; 85730; 93005; 93306; 93925; 93971; 96365; 96375; 99285; C1893; J1644; J2250; J2270; J2405; J3010; J7030